=== PATIENT | female | born 1940 | race Two or more races ===

== ENCOUNTER 2024-11-04 19:27 | Observation (INO) ==
[2024-11-04 19:51] LABS: BASOPHILS # (AUTO) 0.1 K/uL (0-0.2); BASOPHILS % (AUTO) 0.6 % (0.0-3.0); EOSINOPHILS % (AUTO) 0.3 % (0.0-7.0); HEMATOCRIT 42.6 % (37.0-47.0); HEMOGLOBIN 12.5 g/dl (12.0-16.0); IMMATURE GRANULOCYTE % (AUTO) 0.3 % (0.0-5.0); LYMPHOCYTES # (AUTO) 1.2 K/uL (0.60-3.4); LYMPHOCYTES % (AUTO) 11.7 (10.0-50.0); MEAN CORPUSCULAR HEMOGLOBIN 29.6 pg (27.0-31.0); MEAN CORPUSCULAR HGB CONC 29.3 (31.8-35.4); MEAN CORPUSCULAR VOLUME 100.9 fl (81.0-99.0); MONOCYTES # (AUTO) 0.8 K/uL (0.4-2.0); MONOCYTES % (AUTO) 7.8 (0-10); NEUTROPHILS # (AUTO) 8.3 K/ul (2.0-6.9); NEUTROPHILS % (AUTO) 79.3 % (42.2-75.2); PLATELET COUNT 255 10^3/uL (140-440); RDW COEFFICIENT OF VARIATION 13.4 % (11.6-14.8); RED BLOOD COUNT 4.22 10^6/ul (4.20-5.40)
[2024-11-04 20:04] LABS: ALANINE AMINOTRANSFERASE 16.5 U/L (0-35); ALBUMIN 4.13 g/dL (3.5-5.0); ALKALINE PHOSPHATASE 93.8 U/L (53-141); ASPARTATE AMINO TRANSFERASE 25.8 U/L (14-36); BILIRUBIN,TOTAL 0.62 mg/dL (0.2-1.3); BLOOD UREA NITROGEN 20.2 mg/dL (7-17); CALCIUM 9.41 mg/dL (8.4-10.2); CARBON DIOXIDE 24.3 mmol/L (22-30.0); CHLORIDE 104.4 mmol/L (98-107); CREATINE KINASE 103.3 U/L (30-135); CREATININE 0.94 mg/dL (0.60-1.30); POTASSIUM 4.43 mmol/L (3.5-5.1); SODIUM 137.7 mmol/L (134.5-145); TOTAL PROTEIN 6.73 g/dL (6.3-8.2)
[2024-11-04 20:16] LABS: TROPONIN I < 0.012 ng/ml (0.0000-0.120)
--- NOTE | 2024-11-04 20:16 | DI ---
EXAM: CHEST FRONTAL VIEW HISTORY: Chest pain, shortness of breath COMPARISON: None IMPRESSION: Cardiomegaly and ectasia of the thoracic aorta. Lungs are clear. There is no consolidation, acute i nfiltrate or pleural fluid. No vascular congestion or pneumothorax. 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 Surgical clips right axilla. - - - - -
--- NOTE | 2024-11-04 20:17 | CT ---
EXAM: CT OF THE PELVIS WITHOUT CONTRAST. HISTORY: Fall. COMPARISON: None. TECHNIQUE: Contiguous axial images obtained through the bony pelvis. Sagittal and coronal reformats reviewed. FINDINGS: There are postoperative changes with a total arthroplasty. The hardware is intact. Ther e are no acute fractures. There is severe joint narrowing with bone on bone articulation of the righ t hip. Large osteophytes are seen on the femoral head. There is severe degenerative changes of the spine. Disc narrowing osteophyte formation. Anterolisthesis of four on L5. Heavy vascular calcific ations. IMPRESSION: 1. No acute fractures. 2. Postoperative changes left hip. 3. 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 Degenerative changes of the spine. All CT scans are performed using dose optimization techniques as appropriate to the performed exam an d include at least one of the following: Automated exposure control, adjustment of the mA and/or kV according t o size, and the use of iterative reconstruction technique.
--- NOTE | 2024-11-04 20:22 | CT ---
EXAM: CT HEAD WITHOUT CONTRAST TECHNIQUE: Noncontrast CT of the head with multiple reformats. HISTORY: Trauma COMPARISON: None FINDINGS: Ventricular size is normal. Atrophy. Scattered variable white matter attenuation which can be seen w ith underlying chronic microvascular ischemic change. Rodriguez-white matter interfaces are preserved with no evidence of acute infarct. No evidence of intracranial hemorrhage. No midline shift or mass eff ect. No ectopia. Mucosal thickening sphenoid sinus. Mastoid air cells are clear. Orbital contents are normal. The calvarium is intact. IMPRESSION: 1. Mild atrophy and white matter attenuation changes compatible with chronic small vessel ischemia 2. Chronic sinusitis. All CT scans are performed using dose optimization techniques as appropriate to the performed exam an d includes at least one of the following: Automated exposure control, adjustment of the mA and/or kV according to size, and the use of iterative reconstruction technique. All CT scans are performed using dose optimization techniques as appropriate to the performed exam an d include at least one of the following: Automated exposure control, adjustment of the mA and/or kV according t o size, and the use of iterative reconstruction technique.
[2024-11-04 21:22] LABS: BILIRUBIN,URINE Negative (NEGATIVE); CLARITY,URINE Clear (CLEAR); COLOR,URINE Yellow (YELLOW); GLUCOSE, URINE (UA) Negative (NEGATIVE); KETONES,URINE Negative (NEGATIVE); LEUKOCYTE ESTERASE ,URINE 1+ (NEGATIVE); NITRITE,URINE Positive (NEGATIVE); PH,URINE 5.5 (5-9); PROTEIN,URINE Negative (NEGATIVE); URINE, BLOOD Negative (NEGATIVE); UROBILINOGEN,URINE 0.2 (0.2)
[2024-11-04 21:29] LABS: BACTERIA,URINE 2+ (NOT PRESENT); RENAL EPITHELIAL CELLS,URINE 0-2 (NOT PRESENT); URINE WBC, MICROSCOPIC 20-30 (0-2)
[2024-11-04] MEDS ORDERED: ROCEPHIN 1 GM VIAL IVP ONE (21:55)
[2024-11-04] MEDS ORDERED: ROCEPHIN 1 GM VIAL IM ONE (22:09)
[2024-11-04] MEDS ORDERED: LIDOCAINE 1% 5 ML SDV IM ONE (22:09)
--- NOTE | 2024-11-04 22:15 | ED.PDOC ---
General ED Provider: Dr. MARCELLUS WEINBERG DO Chief Complaint: Fall Stated Complaint: 84-year-old female presents to the ER from home via EMS. She was found after she reportedly had fallen to the ground and had trouble getting up. She lives by herself. EMS concerned that she had significant amount of hoarding type activity around her. Otherwise, patient states that she did not pass out, had no prodromal symptoms. currently has not complaints. History reviewed in chart. Time Seen by Provider: 11/04/24 19:29 Information Source: Patient Primary Care Provider: SKY QUIROZ MD Nursing and Triage Documentation Reviewed and Agree: Yes What is Opioid Naive?: *Opioid Naive implies the patient is not already taking opioids or not chronically receiving opioids on a daily basis. *PRN dosing is not "usually" associated with tolerance. *Patients are at higher risk of over-sedation and aspiration. What is Opioid Tolerant?: *Opioid Tolerance implies less than the expected response to an opioid. *Acquired tolerance is defined by the patient taking 60mg of oral morphine daily (or equianalgesic dose of another opioid) for 1 week or more. *Often associated with chronic pain. *May take more than usual dose to achieve desired pain control. Review of Systems Review Of Systems Constitutional: Reports No symptoms All Other Systems: Reviewed and Negative [facility] Medical History CAD (coronary artery disease) I25.10 - Atherosclerotic heart disease of [place] coronary artery without angina pectoris (ICD-10) DVT (deep venous thrombosis) I82.409 - Acute embolism and thrombosis of unspecified deep veins of unspecified lower extremity (ICD-10) RLS (restless legs syndrome) G25.81 - Restless legs syndrome (ICD-10) Anemia, unspecified D64.9 - Anemia, unspecified (ICD-10) Vitamin B12 deficiency E53.8 - Deficiency of other specified B group vitamins (ICD-10) Nodule of right lung R91.1 - Solitary pulmonary nodule (ICD-10) Breast CA C50.919 - Malignant neoplasm of unspecified site of unspecified female breast (ICD-10) Asthma J45.909 - Unspecified asthma, uncomplicated (ICD-10) Afib I48.91 - Unspecified atrial fibrillation (ICD-10) Depression F32.A - Depression, unspecified (ICD-10) Family History FATHER , Lung CA Lung cancer, Onset Age: 87 Mother Heart disease Social History Smoking and tobacco status: Never smoker Passive smoking exposure: No Alcohol intake: current Alcohol intake frequency: a few times a month Alcohol type: beer and wine Counseling provided: provider counseling Substance use type: does not use [place]/voodoo: BAPTISM Adopted: No Household members: none Housing: other Marital status: W / Lives independently: Yes (mobile home) Number of children: 3 Number of grandchildren: 11 Highest education level completed: Master's degree Financial difficulty paying for basics: not very hard service: No halfway: No Current occupational status: retired Current occupation: Retired Pets and animals: Yes (Cats) Do you think of yourself as: straight/heterosexual Current gender identity: female Seatbelt use: always Drives intoxicated or rides with 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 Water heater temperature set < 120 degrees: Yes Working smoke detector in home: Yes Fire extinguisher in home: No (encouraged to purchase) Carbon monoxide detector in home: No Surgical History History of cataract removal with insertion of prosthetic lens bilateral Aug 2021 Z98.49 - Cataract extraction status, unspecified eye (ICD-10) Z96.1 - Presence of intraocular lens (ICD-10) H/O: hysterectomy 1992 Z90.710 - Acquired absence of both cervix and uterus (ICD-10) History of right mastectomy age 46 Z90.11 - Acquired absence of right breast and nipple (ICD-10) Female Reproductive History Menstrual Hx Hysterectomy: Yes Physical Exam Physical Exam Appearance: Reports Well-appearing, No pain distress and Well-nourished ENT: Reports Oropharynx normal Respiratory: Reports Airway patent, Breath sounds clear, Breath sounds equal and Respirations nonlabored Cardiovascular: Reports RRR and Pulses normal GI/: Reports Soft and Nontender Musculoskeletal: Reports Normal strength and ROM intact Skin: Reports Warm, Dry and Normal color Neurological: Reports Sensation intact, Motor intact, Alert and Oriented Psychiatric: Reports Affect appropriate and Mood appropriate Interpretation Radiology Interpretation Radiology Interpretation By: Radiologist Radiology Results: No acute changes Exam Interpreted: CXR and CT Scan Re-Evaluation Re-Evaluation Additional Comments: 84-year-old female presents to the ER after a fall. Unknown downtime. Concern for rhabdo initially. She is afebrile nontoxic doubt sepsis. No acute complaints. Nonfocal neuroexam. Doubt stroke or other neurologic event. Nonetheless, given her age and comorbidities, warrants further workup. Subsequently found to have a UTI. Vital signs otherwise stable. Well-appearing and pleasant. Discussed with the hospital service and appreciate their help in caring for this patient. I am concerned that if she had fallen and not been able to get up, and UTIs the only diagnosis I found primarily today, that it is reasonable to think that she would have the risk of falling and not being able to get up again that could result in further damage such as rhabdomyolysis or other endorgan damage with high mortality rate. Course Course 11/04/24 19:46 11/04/24 19:46 Orders, Labs, Meds: Lab Review 11/04/24 11/04/24 19:46 21:16 WBC 10.50 H RBC 4.22 Hgb 12.5 Hct 42.6 MCV 100.9 H MCH 29.6 MCHC 29.3 L RDW Coeff of Zaira 13.4 Plt Count 255 Immature Gran % (Auto) 0.3 Neut % (Auto) 79.3 H Lymph % (Auto) 11.7 [place] % (Auto) 7.8 Eos % (Auto) 0.3 Baso % (Auto) 0.6 Neut # (Auto) 8.3 H Lymph # (Auto) 1.2 [place] # (Auto) 0.8 Eos # (Auto) 0.0 Baso # (Auto) 0.1 Immature Gran # (Auto) 0.0 Sodium 137.7 Potassium 4.43 Chloride 104.4 Carbon Dioxide 24.3 Anion Gap 13.43 BUN 20.2 H Creatinine 0.94 Estimated GFR (MDRD) 57.00 BUN/Creatinine Ratio 21.48 Glucose 112.0 H Calcium 9.41 Total Bilirubin 0.62 AST 25.8 ALT 16.5 Alkaline Phosphatase 93.8 Total Creatine Kinase 103.3 Troponin I < 0.012 Total Protein 6.73 Albumin 4.13 Globulin 2.60 Albumin/Globulin Ratio 1.58 Urine Color Yellow Urine Clarity Clear Urine pH 5.5 Ur Specific [place] 1.025 Urine Protein Negative Urine Glucose (UA) Negative Urine Ketones Negative Urine Blood Negative Urine Nitrite Positive H Urine Bilirubin Negative Urine Urobilinogen 0.2 Ur Leukocyte Esterase 1+ H Urine Microscopic RBC 2-5 Urine Microscopic WBC 20-30 Ur Squamous Epith Cells 2-5 Ur Renal Epithelial Cell 0-2 Urine Bacteria 2+ Hyaline Casts 2-5 Orders Category Date Time Status CBC W/ AUTO DIFF Stat LAB 11/04/24 19:46 Completed CMP [COMPREHENSIVE METABOLIC PANEL] Stat LAB 11/04/24 19:46 Completed CREATINE KINASE Stat LAB 11/04/24 19:46 Completed TROPONIN I Stat LAB 11/04/24 19:46 Completed URINALYSIS C & S IF INDICATED Stat LAB 11/04/24 21:16 Completed URINE CULTURE Stat LAB 11/04/24 21:16 Received Ceftriaxone 1 gm Vial [Rocephin 1 gm Vial] Meds 11/04/24 22:09 Discontinued 1 gm IM ONCE ONE Lidocaine HCl/Pf [Lidocaine 1% 5 ml Sdv] Meds 11/04/24 22:09 Discontinued 2.1 ml IM ONCE ONE CHEST, 1V AP ONLY Stat RADS 11/04/24 19:[address] HEAD W/O CONTRAST Stat RADS 11/04/24 19:[address] PELVIS W/O CONTRAST Stat RADS 11/04/24 19:35 Completed Medications Discontinued Medications Generic Name Dose Route Start Last Admin Trade Name Osvaldoq PRN Reason Stop Dose Admin Ceftriaxone Sodium 1 gm 11/04/24 22:09 Ceftriaxone 1 Gm Vial IM 11/04/24 22:10 ONCE ONE Lidocaine HCl 2.1 ml 11/04/24 22:09 Lidocaine 1% 5 Ml Sdv IM 11/04/24 22:10 ONCE ONE Vital Signs: Temp Pulse Resp BP Pulse Ox 11/04/24 19:33 97.8 F 85 16 122/58 L 98 Discharge Plan Discharge Patient Disposition: PLACED OBSERVATION Discharge Problem: Acute UTI, Fall, Weakness Did you review [place] for ALL controlled substances?: Not Applicable ED Provider: MARCELLUS WEINBERG Condition: Stable
[2024-11-04] MEDS ORDERED: DUONEB NEB PRN (22:17)
[2024-11-04 22:59] LABS: SARS COV-2 RNA RAPID NAAT NEGATIVE (NEGATIVE)
[2024-11-04] MEDS: ROCEPHIN 1 GM VIAL IVP ONE (23:05)
[2024-11-05 01:11] VITALS: BMI 31.1
[2024-11-05] MEDS: TYLENOL PO PRN (03:22)
[2024-11-05] MEDS: ZOFRAN ODT PO PRN (03:45)
[2024-11-05] MEDS ORDERED: ZOFRAN SDV IVP PRN (08:33)
[2024-11-05] MEDS ORDERED: NON-FORMULARY MEDICATION (Albuterol Sulfate 0.63 mg/3 mL solution for nebulization) IH PRN (08:35)
[2024-11-05] MEDS ORDERED: ALBUTEROL 0.083% NEB NEB PRN (08:51)
[2024-11-05] MEDS ORDERED: XARELTO PO SCH (09:00)
[2024-11-05] MEDS ORDERED: NON-FORMULARY MEDICATION (Budesonide-Glycopyr-Formoterol [Breztri Aerosphere] 160-9-4.8 mc IH SCH (09:00)
[2024-11-05 09:12] LABS: BASOPHILS % (AUTO) 0.7 % (0.0-3.0); EOSINOPHILS # (AUTO) 0.1 K/ul (0.0-0.7); EOSINOPHILS % (AUTO) 1.2 % (0.0-7.0); HEMATOCRIT 35.4 % (37.0-47.0); HEMOGLOBIN 10.8 g/dl (12.0-16.0); IMMATURE GRANULOCYTE % (AUTO) 0.2 % (0.0-5.0); LYMPHOCYTES % (AUTO) 17.2 (10.0-50.0); MEAN CORPUSCULAR HEMOGLOBIN 30.4 pg (27.0-31.0); MEAN CORPUSCULAR HGB CONC 30.5 (31.8-35.4); MEAN CORPUSCULAR VOLUME 99.7 fl (81.0-99.0); MONOCYTES # (AUTO) 0.6 K/uL (0.4-2.0); MONOCYTES % (AUTO) 10.9 (0-10); NEUTROPHILS % (AUTO) 69.8 % (42.2-75.2); PLATELET COUNT 217 10^3/uL (140-440); RDW COEFFICIENT OF VARIATION 13.4 % (11.6-14.8); RED BLOOD COUNT 3.55 10^6/ul (4.20-5.40); WHITE BLOOD COUNT 5.71 K/ul (4.6-10.2)
[2024-11-05 09:23] LABS: ALANINE AMINOTRANSFERASE 15.5 U/L (0-35); ALBUMIN 3.27 g/dL (3.5-5.0); ALKALINE PHOSPHATASE 78.5 U/L (53-141); ASPARTATE AMINO TRANSFERASE 27.6 U/L (14-36); BILIRUBIN,TOTAL 0.38 mg/dL (0.2-1.3); BLOOD UREA NITROGEN 21.3 mg/dL (7-17); CALCIUM 8.69 mg/dL (8.4-10.2); CARBON DIOXIDE 25.4 mmol/L (22-30.0); CHLORIDE 105.7 mmol/L (98-107); CREATININE 1.06 mg/dL (0.60-1.30); GLUCOSE 100.5 mg/dL (74-106); POTASSIUM 3.99 mmol/L (3.5-5.1); SODIUM 137.5 mmol/L (134.5-145); TOTAL PROTEIN 5.79 g/dL (6.3-8.2)
[2024-11-05] MEDS: CYMBALTA PO SCH ×2 (09:25→09:26)
[2024-11-05] MEDS: ZESTRIL PO SCH (09:26)
[2024-11-05] MEDS: WELLBUTRIN XL PO SCH (09:27)
[2024-11-05] MEDS: TYLENOL PO SCH (09:27)
--- NOTE | 2024-11-05 09:31 | PCM ---
Date of Service Date Seen by Provider: 11/05/24 Time Seen by Provider: 08:40 Admit Day/Time Admission Date: 11/04/24 Admission Time: 22:16 Reason for Admission Chief Complaint: UTI, FALL, WEAKNESS Hospital Provider Hospital Provider: [facility] ENCIN[facility]ician Primary Care Physician: SKY QUIROZ MD History of Present Illness History of Present Illness: Patient is an 84 year old female from home with pmhx of COPD, hypertension, paroxysmal a fib, and depression who presents for a fall. Patient states she didn't have her shoe on well and tripped around 0700 on 11/04. She was unable to get to the phone. Ultimately finally "yuriy walked" to the phone and was able to reach someone about 1800. She denies hitting her head or LOC. In the ER she had a ct head, ct pelvis, and cxr negative. CPK normal. UA suspect for UTI. She does admit to some dysuria. She lives at home alone. She is a DNR. She states today her hips are very sore from being in the floor so long. She has concerns about going home. Case Discussed With Case Discussed With: Patient's case was discussed with the ER Physicians, Dr. Meza. [facility] Medical History CAD (coronary artery disease) I25.10 - Atherosclerotic heart disease of [place] coronary artery without angina pectoris (ICD-10) DVT (deep venous thrombosis) I82.409 - Acute embolism and thrombosis of unspecified deep veins of unsp ecified lower extremity (ICD-10) RLS (restless legs syndrome) G25.81 - Restless legs syndrome (ICD-10) Anemia, unspecified D64.9 - Anemia, unspecified (ICD-10) Vitamin B12 deficiency E53.8 - Deficiency of other specified B group vitamins (ICD-10) Nodule of right lung R91.1 - Solitary pulmonary nodule (ICD-10) Breast CA C50.919 - Malignant neoplasm of unspecified site of unspecified female breast (ICD-10) Asthma J45.909 - Unspecified asthma, uncomplicated (ICD-10) Afib I48.91 - Unspecified atrial fibrillation (ICD-10) Depression F32.A - Depression, unspecified (ICD-10) Surgical History History of cataract removal with insertion of prosthetic lens bilateral Aug 2021 Z98.49 - Cataract extraction status, unspecified eye (ICD-10) Z96.1 - Presence of intraocular lens (ICD-10) H/O: hysterectomy 1992 Z90.710 - Acquired absence of both cervix and uterus (ICD-10) History of right mastectomy age 46 Z90.11 - Acquired absence of right breast and nipple (ICD-10) Family History FATHER , Lung CA Lung cancer, Onset Age: 87 Mother Heart disease Social History Smoking and tobacco status: Never smoker Passive smoking exposure: No Alcohol intake: current Alcohol intake frequency: a few times a month Alcohol type: beer and wine Counseling provided: provider counseling Substance use type: does not use [place]/yazidism: MORAVIAN Adopted: No Household members: none Housing: other Marital status: W / Lives independently: Yes (mobile home) Number of children: 3 Number of grandchildren: 11 Highest education level completed: Master's degree Financial difficulty paying for basics: not very hard service: No FDC: No Current occupational status: retired Current occupation: Retired Pets and animals: Yes (Cats) Do you think of yourself as: straight/heterosexual Current gender identity: female Seatbelt use: always Drives intoxicated or rides with intoxicated grain combine driver: No Water heater temperature set < 120 degrees: Yes Working smoke detector in home: Yes Fire extinguisher in home: No (encouraged to purchase) Carbon monoxide detector in home: No Allergies Allergies Allergy/AdvReac Type Severity Reaction Status Date / Time Sulfa (Sulfonamide AdvReac Unknown Unknown Verified 11/04/24 19:45 Antibiotics) Current Medications Home Medications albuterol sulfate 0.63 mg/3 mL solution for nebulization 0.63 mg (3 mL) inhalation Q6H PRN shortness of breath or wheezing #90 mL 06/28/24 [Rx Confirmed 11/05/24 Last Taken Unknown] albuterol sulfate 90 mcg/actuation aerosol inhaler 2 inh inhalation Q6H PRN shortness of breath or wheezing 90 days #8.5 grams 10/20/24 [Rx Confirmed 11/05/24 Last Taken 11/04/24] amlodipine 5 mg tablet 5 mg PO QDAY 90 days #90 tabs 10/20/24 [Rx Confirmed 1 01/06/24 Last Taken 11/03/24] budesonide 160 mcg-glycopyr 9 mcg-formot 4.8 mcg/actuation HFA inhaler (Breztri Aerosphere) 2 inh inhalation BID 10/20/24 [History Confirmed 11/05/24 Last Taken 11/04/24] bumetanide 1 mg tablet 1 mg PO QDAY PRN weight gain/ swelling #90 tabs 10/20/24 [Rx Confirmed 11/05/24 Last Taken 11/04/24] bupropion HCl 150 mg tablet,12 hr sustained-release 150 mg PO QAM 90 days #90 ea 10/20/24 [Rx Confirmed 11/05/24 Last Taken 11/03/24] bupropion HCl 300 mg 24 hr tablet, extended release 300 mg PO QAM 90 days #90 tabs 10/20/24 [Rx Confirmed 11/05/24 Last Taken 11/03/24] duloxetine 30 mg capsule,delayed release 30 mg PO QDAY #30 caps 10/20/24 [Rx Confirmed 11/05/24 Last Taken 11/04/24] duloxetine 60 mg capsule,delayed release 60 mg PO QDAY #90 caps 10/20/24 [Rx Confirmed 11/05/24 Last Taken 11/03/24] lisinopril 40 mg tablet 40 mg PO QDAY 90 days #90 tabs 10/20/24 [Rx Confirmed 11/05/24 Last Taken 11/03/24] rivaroxaban 20 mg tablet (Xarelto) 20 mg PO QDAY #90 tabs 10/20/24 [Rx Confirmed 11/05/24 Last Taken 11/03/24] ergocalciferol (vitamin D2) 1,250 mcg (50,000 unit) capsule See Rx Instructions .Route .COMPLEX #12 caps 10/24/24 [Rx Confirmed 11/05/24 Last Taken 10/30/24] mecobalamin (vitamin B12) 1,000 mcg disintegrating tablet,sublingual 1,000 mcg sublingual QDAY 30 days #30 tabs 10/30/24 [Rx Confirmed 11/04/24 Last Taken Unknown] Home Acetaminophen (Acetaminophen 325 Mg Tablet) 650 mg PO TID [facility] Last Admin: 11/05/24 09:27 Dose: 650 mg Albuterol Sulfate (Albuterol Sulfate 8 Gm Inhaler) 2 puff IH Q6H PRN PRN Reason: sob Albuterol Sulfate (Albuterol Sulfate 0.083% Vial.Neb) 2.5 mg NEB Q6H PRN PRN Reason: sob Albuterol/Ipratropium (Ipratropium/Albuterol Vial.Neb) 3 ml NEB RTQ2H PRN PRN Reason: Wheezing Amlodipine Besylate (Amlodipine Besylate 5 Mg Tablet) 5 mg PO BEDTIME [facility] Budesonide/Formoterol Fumarate (Budesonide/Formoterol Fumarate 160/4.5 Mcg Inhaler) 2 puff IH BID [facility] Last Admin: 11/05/24 09:37 Dose: 2 puff Bupropion HCl (Bupropion Hcl 150 Mg Tab.Er.24h) 300 mg PO QAM [facility] Last Admin: 11/05/24 09:27 Dose: 300 mg Duloxetine HCl (Duloxetine Hcl 30 Mg Capsule.Dr) 30 mg PO DAILY [facility] Last Admin: 11/05/24 09:25 Dose: 30 mg Duloxetine HCl (Duloxetine Hcl 30 Mg Capsule.Dr) 60 mg PO DAILY [facility] Last Admin: 11/05/24 09:26 Dose: 60 mg CEFTRIAXONE/D5W 1 GM PREMIX (Rocephin 1 Gm/50 Ml D5w) 1 gm in 50 mls @ 100 mls/hr IV BEDTIME [facility] Stop: 11/08/24 20:59 Lisinopril (Lisinopril 40 Mg Tablet) 40 mg PO DAILY [facility] Last Admin: 11/05/24 09:26 Dose: 40 mg Non-Formulary Medication (Bupropion Hcl) 150 mg PO QAM [facility] Last Admin: 11/05/24 10:04 Dose: Not Given Ondansetron HCl (Ondansetron Hcl/Pf 4 Mg/2 Ml Sdv) 4 mg IVP Q6H PRN PRN Reason: Nausea / Vomiting Rivaroxaban (Rivaroxaban 10 Mg Tablet) 15 mg PO 1730 [facility] Sodium Chloride (0.9% Sodium Chloride 10 Ml Disp.Syrin) 1 syr IVF Q8HR [facility] Last Admin: 11/05/24 13:17 Dose: 1 syr Tiotropium [place] (Tiotropium [place] 18 Mcg Cap.W.Dev) 1 cap IH DAILY [facility] Last Admin: 11/05/24 09:37 Dose: 1 cap Discontinued Medications Acetaminophen (Acetaminophen 500 Mg Tablet) 500 mg PO Q4H PRN PRN Reason: FEVER/PAIN Last Admin: 11/05/24 03:22 Dose: 500 mg Amlodipine Besylate (Amlodipine Besylate 5 Mg Tablet) 5 mg PO DAILY [facility] Last Admin: 11/05/24 09:53 Dose: Not Given Ceftriaxone Sodium (Ceftriaxone 1 Gm Vial) 1 gm IVP ONCE ONE Stop: 11/04/24 22:18 Last Admin: 11/04/24 23:05 Dose: 1 gm Non-Formulary Medication (Hzidvsswqb-Prfpfwea-Qmylwtrmev [Breztri Aerosphere]) 2 inh IH BID [facility] Ondansetron HCl (Ondansetron Hcl 4 Mg Tab.Rapdis) 4 mg PO Q4H PRN PRN Reason: Nausea / Vomiting Last Admin: 11/05/24 03:45 Dose: 4 mg Opioid Naive vs. Tolerant Does Patient Take Opioids?: No Is Patient Opioid Naive?: Yes What is Opioid Naive?: *Opioid Naive implies the patient is not already taking opioids or not chronically receiving opioids on a daily basis. *PRN dosing is not "usually" associated with tolerance. *Patients are at higher risk of over-sedation and aspiration. Is Patient Opioid Tolerant?: No What is Opioid Tolerant?: *Opioid Tolerance implies less than the expected response to an opioid. *Acquired tolerance is defined by the patient taking 60mg of oral morphine daily (or equianalgesic dose of another opioid) for 1 week or more. *Often associated with chronic pain. *May take more than usual dose to achieve desired pain control. Review of Systems Constitutional: Reports Fatigue and Weakness; Denies Fever Head: Reports Normocephalic and Atraumatic Cardiovascular: Denies Chest pain, Chest Pressure or Edema Respiratory: Denies Cough or Shortness of air Gastrointestinal: Denies Nausea, Vomiting, Diarrhea, Abdominal pain or Melena Genitourinary: Reports Dysuria; Denies Frequency Musculoskeletal: Reports Other (+hip pain lev ) Neurological: Reports Weakness and Problems with walking Psychiatric: Reports Depression and Anxiety Physical examination Most Recent Vital Signs: Most Recent Vital Signs Temperature 97.4 F L 11/05/24 05:06 Temperature Source Temporal Artery Scan 11/05/24 05:06 Temperature Source Infrared 11/04/24 19:33 Pulse Rate 79 11/05/24 05:06 Respiratory Rate 16 11/05/24 05:06 Blood Pressure 123/59 L 11/05/24 05:06 Blood Pressure Mean 80 11/05/24 05:06 Blood Pressure Left Arm 154/82 11/04/24 23:46 Blood Pressure Location Right Arm 11/05/24 05:06 Blood Pressure Position Supine 11/05/24 05:06 O2 Sat by Pulse Oximetry 92 L 11/05/24 05:06 Oxygen Delivery Method Room Air 11/05/24 08:00 Height 5 ft 3 in 11/04/24 23:46 Weight 79.9 kg 11/04/24 23:46 Appearance: Positive No Apparent Distress and Alert and Oriented x3 Skin: Positive [place], Warm and Good Turgor; Negative Rashes HEENT: Positive Normocephalic and Atraumatic Neck: Positive Supple and Midline Trachea Chest/Lungs: Positive Clear to Auscultation Bilaterally; Negative Rales, Rhonci or Wheezes Heart: Positive RRR GI/: Positive Soft, Nontender, Bowel Sounds Normal and No Distention Neurological: Positive Cranial Nerves Intact, Alert, Oriented and Other (+generalized weakness ) Labs This Visit Labs This Visit: Labs This Visit 11/04/24 11/04/24 11/04/24 19:46 21:16 22:40 WBC 10.50 H RBC 4.22 Hgb 12.5 Hct 42.6 MCV 100.9 H MCH 29.6 MCHC 29.3 L RDW Coeff of Zaira 13.4 Plt Count 255 Immature Gran % (Auto) 0.3 Neut % (Auto) 79.3 H Lymph % (Auto) 11.7 [place] % (Auto) 7.8 Eos % (Auto) 0.3 Baso % (Auto) 0.6 Neut # (Auto) 8.3 H Lymph # (Auto) 1.2 [place] # (Auto) 0.8 Eos # (Auto) 0.0 Baso # (Auto) 0.1 Immature Gran # (Auto) 0.0 Sodium 137.7 Potassium 4.43 Chloride 104.4 Carbon Dioxide 24.3 Anion Gap 13.43 BUN 20.2 H Creatinine 0.94 Estimated GFR (MDRD) 57.00 BUN/Creatinine Ratio 21.48 Glucose 112.0 H Calcium 9.41 Total Bilirubin 0.62 AST 25.8 ALT 16.5 Alkaline Phosphatase 93.8 Total Creatine Kinase 103.3 Troponin I < 0.012 Total Protein 6.73 Albumin 4.13 Globulin 2.60 Albumin/Globulin Ratio 1.58 Urine Color Yellow Urine Clarity Clear Urine pH 5.5 Ur Specific [place] 1.025 Urine Protein Negative Urine Glucose (UA) Negative Urine Ketones Negative Urine Blood Negative Urine Nitrite Positive H Urine Bilirubin Negative Urine Urobilinogen 0.2 Ur Leukocyte Esterase 1+ H Urine Microscopic RBC 2-5 Urine Microscopic WBC 20-30 Ur Squamous Epith Cells 2-5 Ur Renal Epithelial Cell 0-2 Urine Bacteria 2+ Hyaline Casts 2-5 SARS CoV-2 RNA Rapid ROYER Negative 11/05/24 09:10 WBC 5.71 RBC 3.55 L Hgb 10.8 L Hct 35.4 L D MCV 99.7 H MCH 30.4 MCHC 30.5 L RDW Coeff of Zaira 13.4 Plt Count 217 Immature Gran % (Auto) 0.2 Neut % (Auto) 69.8 Lymph % (Auto) 17.2 [place] % (Auto) 10.9 H Eos % (Auto) 1.2 Baso % (Auto) 0.7 Neut # (Auto) 4.0 Lymph # (Auto) 1.0 [place] # (Auto) 0.6 Eos # (Auto) 0.1 Baso # (Auto) 0.0 Immature Gran # (Auto) 0.0 Sodium Potassium Chloride Carbon Dioxide Anion Gap BUN Creatinine Estimated GFR (MDRD) BUN/Creatinine Ratio Glucose Calcium Total Bilirubin AST ALT Alkaline Phosphatase Total Creatine Kinase Troponin I Total Protein Albumin Globulin Albumin/Globulin Ratio Urine Color Urine Clarity Urine pH Ur Specific [place] Urine Protein Urine Glucose (UA) Urine Ketones Urine Blood Urine Nitrite Urine Bilirubin Urine Urobilinogen Ur Leukocyte Esterase Urine Microscopic RBC Urine Microscopic WBC Ur Squamous Epith Cells Ur Renal Epithelial Cell Urine Bacteria Hyaline Casts SARS CoV-2 RNA Rapid ROYER Microbiology This Visit 11/04/24 21:16 Urine,Random Urine Culture - Preliminary Imaging Imaging: EXAM: CT HEAD WITHOUT CONTRAST TECHNIQUE: Noncontrast CT of the head with multiple reformats. HISTORY: Trauma COMPARISON: None FINDINGS: Ventricular size is normal. Atrophy. Scattered variable white matter attenuation which can be seen with underlying chronic microvascular ischemic change. Rodriguez-white matter interfaces are preserved with no evidence of acute infarct. No evidence of intracranial hemorrhage. No midline shift or mass effect. No ectopia. Mucosal thickening sphenoid sinus. Mastoid air cells are clear. Orbital contents are normal. The calvarium is intact. IMPRESSION: 1. Mild atrophy and white matter attenuation changes compatible with chronic small vessel ischemia 2. Chronic sinusitis. EXAM: CT OF THE PELVIS WITHOUT CONTRAST. HISTORY: Fall. COMPARISON: None. TECHNIQUE: Contiguous axial images obtained through the bony pelvis. Sagittal and coronal reformats reviewed. FINDINGS: There are postoperative changes with a total arthroplasty. The hardware is intact. There are no acute fractures. There is severe joint narrowing with bone on bone articulation of the right hip. Large osteophytes are seen on the femoral head. There is severe degenerative changes of the spine. Disc narrowing osteophyte formation. Anterolisthesis of four on L5. Heavy vascular calcifications. IMPRESSION: 1. No acute fractures. 2. Postoperative changes left hip. 3. 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 Degenerative changes of the spine. EXAM: CHEST FRONTAL VIEW HISTORY: Chest pain, shortness of breath COMPARISON: None IMPRESSION: Cardiomegaly and ectasia of the thoracic aorta. Lungs are clear. There is no consolidation, acute infiltrate or pleural fluid. No vascular congestion or pneumothorax. Bones reveal arthritis of the shoulders. Surgical clips right axilla. Review Statement Review Statement: I have independently reviewed and interpreted the labs/EKGs/imaging that were ordered by the ER provider. I have reviewed all outside records that are available currently in our EMR including imaging/notes/labs from previous visits. Plan Plan: 1. UTI - Urine culture pending. Rocephin daily. 2. Fall for almost 12 hrs - PTOT, repeat CPK today. 3. Hypertension - Cont home meds 4. Depression - Cont home meds 5. PAF - Cont home meds 6. COPD, not in exacerbation - Cont home meds DVT Prophylaxis: Xarelto Time Spent: Greater than 80 minutes spent with patient, 50% of the time spent with this patient was devoted to counseling and coordination of care. [facility]in minutes spent discussing advance care planning. DNR Admit to: Obs Discussed Plan of Care with Dr. Jarred Alcocer. Dispo: Home w/ home health vs swingbed if she's a candidate, currently no safe discharge plan arranged. Medications Medication Orders: Medications Ordered Category Date Time Status 0.9 % Sodium Chloride [Saline Flush] Meds 11/05/24 05:00 Active 1 syr IVF Q8HR Acetaminophen [Tylenol] Meds 11/05/24 09:00 Active 650 mg PO TID Albuterol Sulfate 0.083% Neb [Albuterol 0.083% Neb] Meds 11/05/24 08:51 Active 2.5 mg NEB Q6H PRN Albuterol Sulfate [Ventolin Hfa] Meds 11/05/24 08:35 Active 2 puff IH Q6H PRN Amlodipine Besylate [Norvasc] Meds 11/05/24 09:00 Active 5 mg PO DAILY Budesonide/Formoterol Fumarate [Symbicort 160-4.5 Mcg Meds 11/05/24 09:00 Active Inhaler] 2 puff IH BID Bupropion HCl [Wellbutrin Xl] Meds 11/05/24 09:00 Active 300 mg PO QAM Ceftriaxone/D5w 1 gm Premix [Rocephin 1 gm/50 ml D5w] Meds 11/05/24 21:00 Active 1 gm in 50 ml IV BEDTIME Duloxetine HCl [Cymbalta] Meds 11/05/24 09:00 Active 30 mg PO DAILY Duloxetine HCl [Cymbalta] Meds 11/05/24 09:00 Active 60 mg PO DAILY Ipratropium/Albuterol Neb [Duoneb] Meds 11/04/24 22:17 Active 3 ml NEB RTQ2H PRN Lisinopril [Zestril] Meds 11/05/24 09:00 Active 40 mg PO DAILY Ondansetron HCl/Pf [Zofran Sdv] Meds 11/05/24 08:33 Active 4 mg IVP Q6H PRN Rivaroxaban [Xarelto] Meds 11/05/24 17:30 Active 15 mg PO 1730 Tiotropium [place] [Spiriva] Meds 11/05/24 09:00 Active 1 cap IH DAILY bupropion HCl Meds 11/05/24 09:00 Active 150 mg PO QAM
[2024-11-05] MEDS: SPIRIVA IH SCH (09:37)
[2024-11-05] MEDS: SYMBICORT 160-4.5 MCG INHALER IH SCH (09:37)
[2024-11-05 09:53] LABS: CREATINE KINASE MB 3.61 ng/ml (0.0-2.38)
[2024-11-05] MEDS: NORVASC PO SCH ×2 (09:53→20:12)
[2024-11-05] MEDS: BUPROPION HCL 150 MG PO SCH (10:04)
[2024-11-05] MEDS: XARELTO PO SCH (16:57)
[2024-11-05] MEDS: ROCEPHIN 1 GM/50 ML D5W 1 GM/50 ML BAG IV SCH (20:12)
[2024-11-06] MEDS: VENTOLIN HFA IH PRN
[2024-11-06 05:20] VITALS: RESP 16
[2024-11-06 05:24] LABS: EOSINOPHILS # (AUTO) 0.1 K/ul (0.0-0.7); EOSINOPHILS % (AUTO) 3.2 % (0.0-7.0); HEMATOCRIT 33.8 % (37.0-47.0); IMMATURE GRANULOCYTE % (AUTO) 0.5 % (0.0-5.0); LYMPHOCYTES # (AUTO) 1.1 K/uL (0.60-3.4); LYMPHOCYTES % (AUTO) 26.2 (10.0-50.0); MEAN CORPUSCULAR HGB CONC 29.6 (31.8-35.4); MEAN CORPUSCULAR VOLUME 101.5 fl (81.0-99.0); MONOCYTES # (AUTO) 0.5 K/uL (0.4-2.0); MONOCYTES % (AUTO) 12.3 (0-10); NEUTROPHILS # (AUTO) 2.3 K/ul (2.0-6.9); NEUTROPHILS % (AUTO) 56.8 % (42.2-75.2); PLATELET COUNT 193 10^3/uL (140-440); RDW COEFFICIENT OF VARIATION 13.5 % (11.6-14.8); RED BLOOD COUNT 3.33 10^6/ul (4.20-5.40); WHITE BLOOD COUNT 4.08 K/ul (4.6-10.2)
[2024-11-06 05:37] LABS: ALANINE AMINOTRANSFERASE 15.5 U/L (0-35); ALBUMIN 3.16 g/dL (3.5-5.0); ALKALINE PHOSPHATASE 77.5 U/L (53-141); ASPARTATE AMINO TRANSFERASE 26.7 U/L (14-36); BILIRUBIN,TOTAL 0.18 mg/dL (0.2-1.3); BLOOD UREA NITROGEN 22.9 mg/dL (7-17); CALCIUM 8.58 mg/dL (8.4-10.2); CARBON DIOXIDE 27.1 mmol/L (22-30.0); CHLORIDE 105.5 mmol/L (98-107); CREATININE 1.06 mg/dL (0.60-1.30); POTASSIUM 4.31 mmol/L (3.5-5.1); SODIUM 137.4 mmol/L (134.5-145); TOTAL PROTEIN 5.63 g/dL (6.3-8.2)
[2024-11-06 10:19] VITALS: BP 112/65; PULSE 87; TEMP 98.3
--- NOTE | 2024-11-06 11:08 | DCSUM ---
Admission Date Admission Date: 11/04/24 Discharge Date Discharge Date: 11/06/24 Admission Diagnosis Admission Diagnosis: 1. UTI 2. Fall for almost 12 hrs Discharge Diagnosis Discharge Diagnosis: 1. UTI - Improving 2. Fall for almost 12 hrs 3. Hypertension - Chronic, stable 4. Depression - Chronic, stable 5. PAF - Chronic, stable 6. COPD, not in exacerbation Hospital Provider Hospital Provider: TESSY KEYS, [facility] Primary Care Physician Primary Care Physician: SKY QUIROZ MD Summary of History and Physical Summary of History and Physical: Patient is an 84 year old female from home with pmhx of COPD, hypertension, paroxysmal a fib, and depression who presents for a fall. Patient states she didn't have her shoe on well and tripped around 0700 on 11/04. She was unable to get to the phone. Ultimately finally "yuriy walked" to the phone and was able to reach someone about 1800. She denies hitting her head or LOC. In the ER she had a ct head, ct pelvis, and cxr negative. CPK normal. UA suspect for UTI. She does admit to some dysuria. She lives at home alone. She is a DNR. She states today her hips are very sore from being in the floor so long. She has concerns about going home. Hospital Course Subjective: During stay, patient was treated for UTI with rocephin 1G Q24H. Received a total of 2 doses. Urine culture showing growth of gram negative rods. Awaiting final report. D/c with keflex, will contact patient if antibiotic is inappropriate. Labs stable. VSS. No orthostasis. PT/OT completed consults on patient this am and patient reports she is at her baseline ambulatory status. Uses rollator at home but has exertional dyspnea due to COPD requiring frequent rest periods. Would benefit from further PT/OT with home health or outpatient to assist with endurance. Appearance: Pleasant, No Apparent Distress and Alert HEENT: MMM, Supple and No JVD CVS: No Murmur, No Rubs and No Gallop Abdomen: Soft, Non-Tender and No Distention Respiratory: No Dyspnea Extremities: No Edema Vital Signs: Most Recent Vital Signs Temperature 98.3 F 11/06/24 10:00 Temperature Source Temporal Artery Scan 11/06/24 10:00 Temperature Source Infrared 11/04/24 19:33 Pulse Rate 87 11/06/24 10:00 Respiratory Rate 16 11/06/24 10:00 Blood Pressure 112/65 11/06/24 10:00 Blood Pressure Mean 80 11/06/24 10:00 Blood Pressure Left Arm 154/82 11/04/24 23:46 Blood Pressure Location Left Arm 11/06/24 10:00 Blood Pressure Position Supine 11/06/24 05:20 O2 Sat by Pulse Oximetry 96 11/06/24 10:00 Oxygen Delivery Method Room Air 11/06/24 10:00 Height 5 ft 3 in 11/04/24 23:46 Weight 79.9 kg 11/04/24 23:46 Imaging: EXAM: CHEST FRONTAL VIEW IMPRESSION: Cardiomegaly and ectasia of the thoracic aorta. Lungs are clear. There is no consolidation, acute infiltrate or pleural fluid. No vascular congestion or pneumothorax. Bones reveal arthritis of the shoulders. Surgical clips right axilla. EXAM: CT HEAD WITHOUT CONTRAST FINDINGS: Ventricular size is normal. Atrophy. Scattered variable white matter attenuation which can be seen with underlying chronic microvascular ischemic change. Rodriguez-white matter interfaces are preserved with no evidence of acute infarct. No evidence of intracranial hemorrhage. No midline shift or mass effect. No ectopia. Mucosal thickening sphenoid sinus. Mastoid air cells are clear. Orbital contents are normal. The calvarium is intact. IMPRESSION: 1. Mild atrophy and white matter attenuation changes compatible with chronic small vessel ischemia 2. Chronic sinusitis. Lab Results Last 24 Hours: 11/06/24 05:08 WBC 4.08 L RBC 3.33 L Hgb 10.0 L Hct 33.8 L MCV 101.5 H MCH 30.0 MCHC 29.6 L RDW Coeff of Zaira 13.5 Plt Count 193 Immature Gran % (Auto) 0.5 Neut % (Auto) 56.8 Lymph % (Auto) 26.2 [place] % (Auto) 12.3 H Eos % (Auto) 3.2 Baso % (Auto) 1.0 Neut # (Auto) 2.3 Lymph # (Auto) 1.1 [place] # (Auto) 0.5 Eos # (Auto) 0.1 Baso # (Auto) 0.0 Immature Gran # (Auto) 0.0 Sodium 137.4 Potassium 4.31 Chloride 105.5 Carbon Dioxide 27.1 Anion Gap 9.11 BUN 22.9 H Creatinine 1.06 Estimated GFR (MDRD) 49.00 BUN/Creatinine Ratio 21.60 Glucose 105.0 Calcium 8.58 Total Bilirubin 0.18 L AST 26.7 ALT 15.5 Alkaline Phosphatase 77.5 Total Protein 5.63 L Albumin 3.16 L Globulin 2.47 Albumin/Globulin Ratio 1.27 Discharge Instructions Discharge Planning: Discharge Planning > 40 minutes If patient is discharged with left ventricular systolic dysfunction: NA Discharged with a beta moe? [] If no, why not? [] Discharged with an cecilia/arb? [] If no, why not? [] Diagnosis: UTI Diet: Regular Activity: as tolerated Medications: Darcie's Discharge Medications: Medications at Discharge (Home Meds & RX) albuterol sulfate 0.63 mg/3 mL solution for nebulization 0.63 mg (3 mL) inhalation Q6H PRN shortness of breath or wheezing #90 mL 06/28/24 albuterol sulfate 90 mcg/actuation aerosol inhaler 2 inh inhalation Q6H PRN shortness of breath or wheezing 90 days #8.5 grams 10/20/24 amlodipine 5 mg tablet 5 mg PO QDAY 90 days #90 tabs 10/20/24 budesonide 160 mcg-glycopyr 9 mcg-formot 4.8 mcg/actuation HFA inhaler (Breztri Aerosphere) 2 inh inhalation BID 10/20/24 bumetanide 1 mg tablet 1 mg PO QDAY PRN weight gain/ swelling #90 tabs 10/20/24 bupropion HCl 150 mg tablet,12 hr sustained-release 150 mg PO QAM 90 days #90 ea 10/20/24 bupropion HCl 300 mg 24 hr tablet, extended release 300 mg PO QAM 90 days #90 tabs 10/20/24 duloxetine 30 mg capsule,delayed release 30 mg PO QDAY #30 caps 10/20/24 duloxetine 60 mg capsule,delayed release 60 mg PO QDAY #90 caps 10/20/24 lisinopril 40 mg tablet 40 mg PO QDAY 90 days #90 tabs 10/20/24 rivaroxaban 20 mg tablet (Xarelto) 20 mg PO QDAY #90 tabs 10/20/24 ergocalciferol (vitamin D2) 1,250 mcg (50,000 unit) capsule See Rx Instructions .Route .COMPLEX #12 caps 10/24/24 mecobalamin (vitamin B12) 1,000 mcg disintegrating tablet,sublingual 1,000 mcg sublingual QDAY 30 days #30 tabs 10/30/24 Discharge Plan Discharge Discharge Orders: Discharge Patient (ONCE); Ordered 11/06/24 Ordered By: LAN BALDWIN Activity Restrictions/Additional Instructions: Diagnosis: UTI Diet: Regular Activity: as tolerated Medications: [facility] Instructions: Urinary Tract Infection in Women (GEN) Care Plan Goals: Problem: Infection Goal #1: No signs/symptoms of infection Instructions: Monitor for sign/symptoms of infection Monitor temperature Goal #2: White blood cell counts Within Normal Limits Instructions: Obtain labs per physician orders Patient Disposition: HOME WITH FAMILY CARE Prescriptions: New cephalexin 500 mg capsule 500 mg PO BID Qty: 10 0RF Continued ergocalciferol (vitamin D2) 1,250 mcg (50,000 unit) capsule See Rx Instructions .ROUTE .COMPLEX Qty: 12 0RF Dose Instruction: TAKE ONE CAPSULE EVERY WEEK Rx Instructions: TAKE ONE CAPSULE EVERY WEEK mecobalamin (vitamin B12) 1,000 mcg tablet,disintegrating 1,000 mcg sublingual QDAY 30 Days Qty: 30 1RF Patient Comments: New med, patient has not started as of yet Rx Instructions: place tablet under tongue and allow to dissolve for at least30 secs before swallowing Breztri Aerosphere 160-9-4.8 mcg/actuation HFA aerosol inhaler 2 inh inhalation BID albuterol sulfate 90 mcg/actuation HFA aerosol inhaler 2 inh inhalation Q6H PRN (Reason: shortness of breath or wheezing) 90 Days Qty: 8.5 2RF lisinopril 40 mg tablet 40 mg PO QDAY 90 Days Qty: 90 0RF Xarelto 20 mg tablet 20 mg PO QDAY Qty: 90 1RF Rx Instructions: must administer with evening meal duloxetine 60 mg capsule,delayed release(DR/EC) 60 mg PO QDAY Qty: 90 1RF duloxetine 30 mg capsule,delayed release(DR/EC) 30 mg PO QDAY Qty: 30 2RF bupropion HCl 300 mg tablet extended release 24 hr 300 mg PO QAM 90 Days Qty: 90 1RF bupropion HCl 150 mg tablet sustained-release 12 hr 150 mg PO QAM 90 Days Qty: 90 1RF bumetanide 1 mg tablet 1 mg PO QDAY PRN (Reason: weight gain/ swelling) Qty: 90 0RF amlodipine 5 mg tablet 5 mg PO QDAY 90 Days Qty: 90 1RF albuterol sulfate 0.63 mg/3 mL solution for nebulization 0.63 mg inhalation Q6H PRN (Reason: shortness of breath or wheezing) Qty: 90 2RF Did you review [place] PUBLIC RELATIONS ASSOCIATE for ALL controlled substances?: No Discussed opioids are addictive and Narcan is available by prescription or from pharmacy.: No Condition: Stable Referrals: ANDREA MCCLURE APRN [NURSE PRACTITIONER] - 11/14/24 12:45 pm
== END 2024-11-06 12:40 | disposition home or self-care (01) ==
LOC: ED 19:27 → MEDSURG B 19:27
PROVIDERS: ADMIT Hospitalist; ATTEND Nurse Practitioner Family
DX: M19.012 Primary osteoarthritis, left shoulder; Z51.81 Encounter for therapeutic drug level monitoring; M25.552 Pain in left hip; J32.9 Chronic sinusitis, unspecified; N39.0 Urinary tract infection, site not specified; I10 Essential (primary) hypertension; F32.A Depression, unspecified; W01.0XXA Fall on same level from slipping, tripping and stumbling without subsequent striking against object, initial encounter; M25.78 Osteophyte, vertebrae; Z96.642 Presence of left artificial hip joint; Z79.899 Other long term (current) drug therapy; M25.551 Pain in right hip; M16.11 Unilateral primary osteoarthritis, right hip; R07.9 Chest pain, unspecified; I48.0 Paroxysmal atrial fibrillation; I77.810 Thoracic aortic ectasia; Z20.822 Contact with and (suspected) exposure to COVID-19; M19.011 Primary osteoarthritis, right shoulder; J44.9 Chronic obstructive pulmonary disease, unspecified; M43.16 Spondylolisthesis, lumbar region; I51.7 Cardiomegaly; R06.02 Shortness of breath

== ENCOUNTER 2025-09-25 18:22 | Observation (INO) ==
[2025-09-25 18:48] LABS: IMMATURE GRANULOCYTE # (AUTO) 0.0 (0.0-1.0); IMMATURE GRANULOCYTE % (AUTO) 0.4 % (0.0-5.0); RDW COEFFICIENT OF VARIATION 13.1 % (11.6-14.8)
--- NOTE | 2025-09-25 18:48 | ED.PDOC ---
General HPI ED Provider: Dr. GENEVIEVE HASKINS MD Chief Complaint: Shortness of Air Stated Complaint: Patient is an 85-year-old female that was brought in by EMS for shortness of breath. Patient has a history of CHF and COPD. Patient stated that she was having a COPD exacerbation. She stated that they changed her treatment for COPD to Arformoterol and budesonide. She stated that she needs someone to help her at home with her treatments. Patient stated that she has not been compliant with her medication. She stated that she is not on home O2. EMS stated that they put her on 3 L nasal cannula to help keep her O2 sat above 95. In the emergency department patient is on 100% on 2 L. Patient was able to be weaned off any O2 and stayed above 94%. Patient denies any recent illnesses. Patient denies any chest pain, nausea, vomiting, diarrhea, dizziness, syncope, loss of consciousness, or any other acute symptoms or currently mentioned in her HPI. Patient's vital signs are stable currently. Patient's GCS is 15. The patient is alert and oriented person, place, and time. Time Seen by Provider: 09/25/25 18:30 Mode of Arrival: Ambulance Information Source: Patient and EMT Exam Limitations: No limitations Primary Care Provider: SKY QUIROZ MD Nursing and Triage Documentation Reviewed and Agree: Yes Opioid Naive vs. Tolerant What is Opioid Naive?: *Opioid Naive implies the patient is not already taking opioids or not chronically receiving opioids on a daily basis. *PRN dosing is not "usually" associated with tolerance. *Patients are at higher risk of over-sedation and aspiration. What is Opioid Tolerant?: *Opioid Tolerance implies less than the expected response to an opioid. *Acquired tolerance is defined by the patient taking 60mg of oral morphine daily (or equianalgesic dose of another opioid) for 1 week or more. *Often associated with chronic pain. *May take more than usual dose to achieve desired pain control. Review of Systems Review Of Systems Constitutional: Reports No symptoms Respiratory: Reports Shortness of Breath All Other Systems: Reviewed and Negative [facility] Medical History (Updated 09/25/25 @ 19:29 by GENEVIEVE HASKINS MD) Urinary frequency R35.0 - Frequency of micturition (ICD-10) CAD (coronary artery disease) I25.10 - Atherosclerotic heart disease of [place] coronary artery without angina pectoris (ICD-10) DVT (deep venous thrombosis) I82.409 - Acute embolism and thrombosis of unspecified deep veins of unspecified lower extremity (ICD-10) RLS (restless legs syndrome) G25.81 - Restless legs syndrome (ICD-10) Anemia, unspecified D64.9 - Anemia, unspecified (ICD-10) Vitamin B12 deficiency E53.8 - Deficiency of other specified B group vitamins (ICD-10) Nodule of right lung R91.1 - Solitary pulmonary nodule (ICD-10) Breast CA C50.919 - Malignant neoplasm of unspecified site of unspecified female breast (ICD-10) Asthma J45.909 - Unspecified asthma, uncomplicated (ICD-10) Afib I48.91 - Unspecified atrial fibrillation (ICD-10) Depression F32.A - Depression, unspecified (ICD-10) Family History FATHER , Lung CA Lung cancer, Onset Age: 87 Mother Heart disease Social History Smoking and tobacco status: Never smoker Passive smoking exposure: No Alcohol intake: current Alcohol intake frequency: a few times a month Alcohol type: beer and wine Counseling provided: provider counseling Substance use type: does not use Moreila/zoroastrianism: [place] Adopted: No Household members: none Housing: other Marital status: W / Lives independently: Yes (mobile home) Number of children: 3 Number of grandchildren: 11 Highest education level completed: Master's degree Financial difficulty paying for basics: not very hard service: No penitentiary: No Current occupational status: retired Current occupation: Retired Pets and animals: Yes (Cats) Do you think of yourself as: straight/heterosexual Current gender identity: female Seatbelt use: always Drives intoxicated or rides with intoxicated driver/merchandiser: No Water heater temperature set < 120 degrees: Yes Working smoke detector in home: Yes Fire extinguisher in home: No (encouraged to purchase) Carbon monoxide detector in home: No Surgical History History of cataract removal with insertion of prosthetic lens bilateral Aug 2021 Z98.49 - Cataract extraction status, unspecified eye (ICD-10) Z96.1 - Presence of intraocular lens (ICD-10) H/O: hysterectomy 1992 Z90.710 - Acquired absence of both cervix and uterus (ICD-10) History of right mastectomy age 46 Z90.11 - Acquired absence of right breast and nipple (ICD-10) Female Reproductive History Menstrual Hx Hysterectomy: Yes Hx Tubal Ligation: No Physical Exam Physical Exam Appearance: Reports Well-appearing and Well-nourished Ill-appearing: None Pain Distress: None Eyes: Reports Conjunctiva clear ENT: Reports Nose normal and Oropharynx normal Neck: Supple Respiratory: Reports Airway patent, Breath sounds diminished (Diminished breath sounds in the lower lung carreon noted.), Respirations nonlabored and Wheezes (Mild wheezing noted in the mid and lower lung carreon bilaterally.); Denies Crackles or Rhonchi Cardiovascular: Reports No rub, No murmur and Irregular rhythm (Irregularly irregular heart rhythm. Normal rate at 94 bpm.) GI/: Reports Soft, Nontender and Bowel sounds normal Musculoskeletal: Reports Normal strength Skin: Reports Warm, Dry and Normal color Neurological: Reports Sensation intact, Motor intact, Alert and Oriented Psychiatric: Reports Affect appropriate Physician Progress Note Physician Progress Note: Patient is an 85-year-old female that was brought in by EMS for shortness of breath. Patient has a history of CHF and COPD. Patient stated that she was having a COPD exacerbation. She stated that they changed her treatment for COPD to Arformoterol and budesonide. She stated that she needs someone to help her at home with her treatments. Patient stated that she has not been compliant with her medication. She stated that she is not on home O2. EMS stated that they put her on 3 L nasal cannula to help keep her O2 sat above 95. In the emergency department patient is on 100% on 2 L. Patient was able to be weaned off any O2 and stayed above 94%. Patient denies any recent illnesses. Patient denies any chest pain, nausea, vomiting, diarrhea, dizziness, syncope, loss of consciousness, or any other acute symptoms or currently mentioned in her HPI. Patient's vital signs are stable currently. Patient's GCS is 15. The patient is alert and oriented person, place, and time. - Will give the patient a DuoNeb treatment and IV methylprednisolone 125 mg for COPD exacerbation with wheezing and decreased breath sounds in the lower lung carreon. - Will order a chest x-ray, EKG, troponin, and baseline labs due to patient's shortness of breath. - Will order an ABG. -EKG shows atrial fibrillation with a ventricular rate of 93 bpm. Left axis deviation noted. Incomplete right bundle branch block noted. No acute STEMI. EKG interpreted by ER physician. - Chest x-ray shows no acute cardiopulmonary disease. This radiograph was interpreted by the ER physician and over read by radiology. - Will give patient IV bumetanide 1 mg that she has not been taking at home and she has +2 pitting edema at bedside. - Reassessed patient at bedside after her first DuoNeb treatment and patient still has lower lung field decreased lung sounds and tightness. Will give patient a second DuoNeb treatment. - Troponins negative. - Will give the patient IV cefepime 1 g and IV azithromycin 500 mg for COPD exacerbation. (1941) Will contact hospitalist for observational admission. Was unable to reach the hospitalist. Will try again in approximately 5 to 10 minutes. -(1947) spoke to hospitalist, Anurag Govea, [facility] and discussed patient's COPD exacerbation and 2 DuoNeb treatments with IV methylprednisolone as well and IV cefepime 1 g and IV Zithromycin 500 mg, CHF with lower extremity edema and treatment with IV bumetanide 1 mg. Also discussed other pertinent findings. Ms. Govea has agreed to accept this patient for observational admission. Patient's vital signs are stable at time of admission. Course Course 09/25/25 18:40 09/25/25 18:40 Orders, Labs, Meds: Lab Review 09/25/25 09/25/25 09/25/25 18:39 18:40 18:55 WBC 5.62 RBC 3.57 L Hgb 10.7 L Hct 36.5 L MCV 102.2 H MCH 30.0 MCHC 29.3 L RDW Coeff of Zaira 13.1 Plt Count 183 Immature Gran % (Auto) 0.4 Neut % (Auto) 61.4 Lymph % (Auto) 21.7 [place] % (Auto) 11.0 H Eos % (Auto) 4.6 Baso % (Auto) 0.9 Neut # (Auto) 3.5 Lymph # (Auto) 1.2 [place] # (Auto) 0.6 Eos # (Auto) 0.3 Baso # (Auto) 0.1 Immature Gran # (Auto) 0.0 Puncture Site Lbrach Base Excess 2.4 O2 Saturation 96.5 ABG pH 7.45 ABG pCO2 38.0 ABG pO2 82.0 L ABG HCO3 26.4 ABG Total CO2 27.6 H Elver Test N/a Hemoglobin 1.5 Oxyhemoglobin 95.3 Carboxyhemoglobin 1.5 Total Hemoglobin 11.3 L O2 Delivery Device Cannula Oxygen Liter Flow 2.00 Sodium 138.4 Potassium 3.67 Chloride 109.0 H Carbon Dioxide 23.8 Anion Gap 9.27 BUN 14.2 Creatinine 0.65 Estimated GFR (MDRD) 86.00 BUN/Creatinine Ratio 21.84 Glucose 114.3 H Calcium 9.15 Total Bilirubin 0.23 AST 24.0 ALT 16.2 Alkaline Phosphatase 80.1 Troponin I 0.012 NT-Pro-B Natriuret Pep 2830 H Total Protein 5.89 L Albumin 3.51 Globulin 2.38 Albumin/Globulin Ratio 1.47 Influ A Molecular Assay Negative by naat Influ B Molecular Assay Negative by naat RSV Antigen SARS CoV-2 RNA Rapid ROYER Negative 09/25/25 18:56 WBC RBC Hgb Hct MCV MCH MCHC RDW Coeff of Zaira Plt Count Immature Gran % (Auto) Neut % (Auto) Lymph % (Auto) [place] % (Auto) Eos % (Auto) Baso % (Auto) Neut # (Auto) Lymph # (Auto) [place] # (Auto) Eos # (Auto) Baso # (Auto) Immature Gran # (Auto) Puncture Site Base Excess O2 Saturation ABG pH ABG pCO2 ABG pO2 ABG HCO3 ABG Total CO2 Elver Test Hemoglobin Oxyhemoglobin Carboxyhemoglobin Total Hemoglobin O2 Delivery Device Oxygen Liter Flow Sodium Potassium Chloride Carbon Dioxide Anion Gap BUN Creatinine Estimated GFR (MDRD) BUN/Creatinine Ratio Glucose Calcium Total Bilirubin AST ALT Alkaline Phosphatase Troponin I NT-Pro-B Natriuret Pep Total Protein Albumin Globulin Albumin/Globulin Ratio Influ A Molecular Assay Influ B Molecular Assay RSV Antigen Negative by naat SARS CoV-2 RNA Rapid ROYER Orders Category Date Time Status ABG DRAW REQUEST Stat CARDIO 09/25/25 18:31 Completed EKG-(ED & IP/OBS ONLY) Stat CARDIO 09/25/25 18:30 Completed NEBULIZER TREATMENT Stat CARDIO 09/25/25 18:31 Completed NEBULIZER TREATMENT Stat CARDIO 09/25/25 19:23 Completed ABG COOX Stat LAB 09/25/25 18:39 Completed CBC W/ AUTO DIFF Stat LAB 09/25/25 18:40 Completed CMP [COMPREHENSIVE METABOLIC PANEL] Stat LAB 09/25/25 18:40 Completed COVID [SARS COV-2 RNA RAPID ROYER] Stat LAB 09/25/25 18:55 Completed FLU A & B MOLECULAR [FLU A/B MOLECULAR] Stat LAB 09/25/25 18:55 Completed NT-PROBNP Stat LAB 09/25/25 18:40 Completed RAPID STREP SCREEN [MOLECULAR GROUP A STREP] Stat LAB 09/25/25 18:55 Completed RSV Stat LAB 09/25/25 18:56 Completed TROPONIN I Stat LAB 09/25/25 18:40 Completed Azithromycin Inj [Zithromax] 500 mg Meds 09/25/25 19:41 Active 0.9 % Sodium Chloride [Sodium Chloride] 250 ml IV ONCE Bumetanide [Bumex] Meds 09/25/25 19:22 Discontinued 1 mg IVP ONCE STA Cefepime 1 gm Vial [Maxipime 1 gm Vial] 1 gm Meds 09/25/25 19:41 Active 0.9 % Sodium Chloride [Sodium Chloride] 50 ml IV ONCE Ipratropium/Albuterol Neb [Duoneb] Meds 09/25/25 18:30 Discontinued 3 ml NEB ONCE STA Ipratropium/Albuterol Neb [Duoneb] Meds 09/25/25 19:22 Discontinued 3 ml NEB ONCE STA Methylprednisolone Sod Succ/Pf [Solu-Medrol 125 mg] Meds 09/25/25 18:30 Discontinued 125 mg IVP ONCE ONE CHEST, 1V AP ONLY Stat RADS 09/25/25 18:30 Taken Medications Generic Name Dose Route Start Last Admin Trade Name Freq PRN Reason Stop Dose Admin Cefepime HCl 1 gm/ Sodium 50 mls @ 100 mls/hr 09/25/25 19:41 Chloride IV 09/25/25 20:10 ONCE ONE Azithromycin 500 mg/ Sodium 250 mls @ 250 mls/hr 09/25/25 19:41 Chloride IV 09/25/25 20:40 ONCE ONE Discontinued Medications Generic Name Dose Route Start Last Admin Trade Name Freq PRN Reason Stop Dose Admin Albuterol/Ipratropium 3 ml 09/25/25 18:30 09/25/25 19:11 Ipratropium/Albuterol Vial.Neb NEB 09/25/25 18:31 3 ml ONCE STA Administration Albuterol/Ipratropium 3 ml 09/25/25 19:22 09/25/25 19:33 Ipratropium/Albuterol Vial.[facility] 09/25/25 19:23 3 ml ONCE STA Administration Bumetanide 1 mg 09/25/25 19:22 Bumetanide 1 Mg/4 Ml Vial IVP 09/25/25 19:23 ONCE STA Methylprednisolone Sodium Succinate 125 mg 09/25/25 18:30 09/25/25 19:03 Methylprednisolone Sod Succ/Pf 125 Mg/2 Ml Vial IVP 09/25/25 18:31 125 mg ONCE ONE Administration Vital Signs: Temp Pulse Resp BP Pulse Ox 09/25/25 18:23 98.2 F 88 15 158/78 H 100 Discharge Plan Discharge Patient Disposition: PLACED OBSERVATION Discharge Problem: Acute exacerbation of chronic obstructive pulmonary disease, Anemia of chronic disease, Non compliance w medication regimen A-fib Qualifiers: Atrial fibrillation type: unspecified chronic Qualified Code(s): I48.20 - Chronic atrial fibrillation, unspecified Did you review [place] PAVING MACHINE OPERATOR for ALL controlled substances?: Not Applicable ED Provider: GENEVIEVE HASKINS Condition: Stable
[2025-09-25 19:00] LABS: CREATININE 0.65 mg/dL (0.60-1.30)
[2025-09-25] MEDS: SOLU-MEDROL 125 MG IVP ONE (19:03)
[2025-09-25 19:05] LABS: ABG O2 HGB 95.3 % (95-100); ABG PCO2 38.0 mmHg (35-45); ABG PH 7.45 (7.35-7.45); ABG PO2 82.0 mmHg (85-100); BEecf 2.4 (-2.0-3.0); HCO3 26.4 (21-28); TCO2 27.6 (19-24)
[2025-09-25] MEDS: DUONEB NEB STA ×2 (19:11→19:33)
[2025-09-25 19:32] LABS: MOLECULAR FLU A NEGATIVE BY NAAT (NEGATIVE); MOLECULAR FLU B NEGATIVE BY NAAT (NEGATIVE); SARS COV-2 RNA RAPID NAAT NEGATIVE (NEGATIVE)
[2025-09-25 19:33] LABS: RSV MOLECULAR NEGATIVE BY NAAT (NEGATIVE)
[2025-09-25] MEDS: BUMEX IVP STA (19:58)
[2025-09-25] MEDS: MAXIPIME 1 GM VIAL 1 GM in SODIUM CHLORIDE 50 ML IV ONE (19:59)
[2025-09-25] MEDS: MAXIPIME 1 GM VIAL ONE (19:59)
[2025-09-25 20:46] LABS: BORDETELLA PARAPERTUSSIS (PCR) NOT DETECTED (NOT DETECT); BORDETELLA PERTUSSIS (PCR) NOT DETECTED (NOT DETECT); CHLAMYDIA PNEUMONIAE (PCR) NOT DETECTED (NOT DETECT); CORONAVIRUS 229E (PCR) NOT DETECTED (NOT DETECT); CORONAVIRUS HKU1 (PCR) NOT DETECTED (NOT DETECT); CORONAVIRUS NL63 (PCR) NOT DETECTED (NOT DETECT); CORONAVIRUS OC43 (PCR) NOT DETECTED (NOT DETECT); HUMAN METAPNEUMOVIRUS (PCR) NOT DETECTED (NOT DETECT); HUMAN RHINOVIRUS/ENTEROV (PCR) NOT DETECTED (NOT DETECT); INFLUENZA A H1 (PCR) NOT DETECTED (NOT DETECT); INFLUENZA A H1-2009 (PCR) NOT DETECTED (NOT DETECT); INFLUENZA A H3 (PCR) NOT DETECTED (NOT DETECT); INFLUENZA B (PCR) NOT DETECTED (NOT DETECT); MYCOPLASMA PNEUMONIAE (PCR) NOT DETECTED (NOT DETECT); PARAINFLUENZA VIRUS 1 (PCR) NOT DETECTED (NOT DETECT); PARAINFLUENZA VIRUS 2 (PCR) NOT DETECTED (NOT DETECT); PARAINFLUENZA VIRUS 3 (PCR) NOT DETECTED (NOT DETECT); PARAINFLUENZA VIRUS 4 (PCR) NOT DETECTED (NOT DETECT); RESPIRATORY SYNCYTIAL V (PCR) NOT DETECTED (NOT DETECT); SARS_COV_2 (PCR) NOT DETECTED (NOT DETECT)
[2025-09-25] MEDS: ZITHROMAX 500 MG in SODIUM CHLORIDE 250 ML IV ONE (20:52)
--- NOTE | 2025-09-25 20:54 | DI ---
EXAM: CHEST RADIOGRAPH TECHNIQUE: Single frontal chest radiograph. HISTORY: Shortness of breath. COMPARISON: 11/04/2024 FINDINGS: Similar configuration of the cardiomediastinal silhouette and central pulmonary vessels. Lungs appear clear. Stable postoperative changes in the right axilla. Degenerative shoulder changes. IMPRESSION: 1. Stable chest without new acute intrathoracic process.
[2025-09-25] MEDS: TYLENOL PO PRN (21:28)
[2025-09-25 21:40] LABS: ADENOVIRUS (PCR) NOT DETECTED (NOT DETECT)
[2025-09-25 22:21] VITALS: BMI 30.8
[2025-09-25] MEDS ORDERED: VENTOLIN HFA IH PRN (22:28)
[2025-09-25] MEDS ORDERED: TYLENOL PO PRN (23:01)
[2025-09-25] MEDS: XARELTO PO SCH (23:03)
[2025-09-25] MEDS: BENADRYL PO ONE (23:03)
[2025-09-26] MEDS: DUONEB NEB SCH (00:30)
[2025-09-26] MEDS: SOLU-MEDROL 40 MG IVP SCH (05:02)
[2025-09-26] MEDS: LASIX IVP SCH ×2 (05:02→13:00)
[2025-09-26 05:16] LABS: IMMATURE GRANULOCYTE # (AUTO) 0.0 (0.0-1.0); IMMATURE GRANULOCYTE % (AUTO) 0.2 % (0.0-5.0); RDW COEFFICIENT OF VARIATION 13.0 % (11.6-14.8)
[2025-09-26 05:37] LABS: CREATININE 0.65 mg/dL (0.60-1.30)
[2025-09-26] MEDS ORDERED: XOPENEX 0.63 MG NEB PRN (07:18)
[2025-09-26] MEDS ORDERED: CYMBALTA PO SCH (09:00)
[2025-09-26] MEDS ORDERED: WELLBUTRIN XL PO SCH (09:00)
[2025-09-26] MEDS ORDERED: BUPROPION HCL 150 MG PO SCH (09:00)
[2025-09-26] MEDS: FLONASE NAS SCH (09:52)
[2025-09-26] MEDS: ZESTRIL PO SCH (09:53)
[2025-09-26] MEDS: ROCEPHIN 1 GM/50 ML D5W 1 GM/50 ML BAG IV SCH (09:53)
[2025-09-26] MEDS: CYMBALTA PO SCH (09:53)
[2025-09-26] MEDS: ZYRTEC PO SCH (09:54)
[2025-09-26] MEDS: NORVASC PO SCH (09:54)
[2025-09-26] MEDS: WELLBUTRIN XL PO SCH (09:54)
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
[2025-09-26] MEDS: LOPRESSOR PO SCH (12:31)
[2025-09-26] MEDS: XARELTO PO SCH (16:42)
[2025-09-26] MEDS: ZITHROMAX PO SCH (20:22)
[2025-09-26] MEDS ORDERED: PULMICORT 0.5 MG/2 ML NEB SCH (21:00)
[2025-09-26] MEDS: PULMICORT 0.5 MG/2 ML NEB SCH (21:05)
[2025-09-27 05:26] LABS: IMMATURE GRANULOCYTE # (AUTO) 0.0 (0.0-1.0); IMMATURE GRANULOCYTE % (AUTO) 0.5 % (0.0-5.0); RDW COEFFICIENT OF VARIATION 13.2 % (11.6-14.8)
[2025-09-27 05:43] LABS: CREATININE 0.98 mg/dL (0.60-1.30)
[2025-09-27 08:21] VITALS: RESP 18
[2025-09-27] MEDS: TOPROL XL PO SCH (09:30)
--- NOTE | 2025-09-27 09:31 | RS.PTINEVL ---
Subjective Patient information Date of Evaluation: 09/27/25 Date of Arrival on Unit: 09/25/25 Admitted From:: Home Diagnosis: acute COPD exacerbation, CHF, AFib Usual Living Arrangement: Alone Living Arrangement Comments: pt lives alone, son lives nearby however does not help often. Home Environment: House and Ramp Medical History: Hypertension, COPD, CHF and Arthritis Medical History Comments:: anxiety/depression, osteoporosis LATEX ALLERGY?: No Surgical History: Knee Replacement Medications: see chart Subjective Information/ Patient Comments:: pt states that she is planning to go to assisted living when she leaves the hospital. pt reports that she cannot do everything at home on her own. Level of function Prior to this admission, the patient could do the following:: Independent Ambulation and Perform Aemt/Cooking Abilities prior to this admission: pt amb short distances with rwx or holding furniture. 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 Current Level of Function: Partially Dependent Current Equipment Used at Home: rwx, w/c Pain Assessement Location everywhere: Description: Aching Pain Behavior: Facial Grimacing Pain Aggravating Factors: Changing Position, Exercise/Activity, Standing and Walking Interventions Objective Patient Orientation: Person, Place, Time and Situation Current Interventions: Telemetry Observation: pt with multiple areas of bug bites to back and legs. Increased thoracic kyphosis Range of Motion ROM Right Upper Extremity AROM: Moderate limitation (decreased shld ROM elbow/wrist/hand WFL's) Left Upper Extremity AROM: Moderate limitation (limited shld ROM elbow/wrist/ferreira d WFL's ) Right Lower Extremity AROM: WFL's Left Lower Extremity AROM: WFL's Muscle Strength Muscle Strength Right Upper Extremity: Moderate Weakness (shld flex 3-/5, elbow flex/ext 3+/5) Left Upper Extremity: Moderate Weakness (shld flex 3-/5, elbow flex/ext 4-/5) Right Lower Extremity: Moderate Weakness (hip flex 3+/5, knee flex/ext 4-/5, ankle 4/5 ) Left Lower Extremity: Moderate Weakness (hip flex 3+/5, knee flex/ext 4-/5, ankle 4/5 ) Sensation Sensation Right Upper Extremity: Intact/Normal Left Upper Extremity: Intact/Normal Right Lower Extremity: Intact/Normal Left Lower Extremity: Intact/Normal Palpation Palpation Findings: Tenderness (BLE) Balance Sitting Balance and Reactions Static Sitting Balance: Good (good-) Dynamic Sitting Balance: Fair Standing Balance and Reactions Static Standing Balance: Poor Dynamic Standing Balance: Poor Functional Mobility Bed Mobility Rolling R/L: Supervision Scooting: Supervision Supine to Sit: CGA Transfers Sit to Stand: CGA Stand to Sit: CGA Stand Pivot Transfers: CGA Safety Awareness Safety Awareness: Fair АЛЕКСАНДР INDEX SCORE: n/a Ambulation Ambulation Assistive Device Used: Rolling Walker Orthotic/Prosthetic Device: No Distance: 25ft Assistance needed with Ambulation: CGA and Min Assist Gait Deviations: Forward posture and Short stride Ambulation Comments: pt with SOA with ambulation and 1 episode of R knee buckling which pt was able to maintain balance with min x 1 Factors Affecting Ambulation: Decreased Balance, Breathing/O2 Saturation, Pain, Weakness, Decreased Coordination, Decreased ROM, Decreased Safety and Limited Endurance Treatment time Units charged Gait trainin Time with patient Length of Evaluation: 19 Total treatment time: 27 Patient Education Education Patient Education: Home Exercise Program and Education of Plan of Care Teaching Recipient: Patient Teaching Methods: Discussion Comments: discussion regarding POC and dc planning Assessment Assessment Problem List:: Decreased level of function, Requires training/education, Decreased safety/Risk of falls, Weakness and Pain limits previous level of function Rehab Potential: Good Further Therapy Indicated?: Yes Candidate for Swing Bed for Therapy Services?: Feel pt may benefit from swing bed for therapy to improve strength and functional mobility to decrease fall risk. Evaluation Complexity: HISTORY: Medium, EXAM OF BODY SYSTEMS: Medium, CLINICAL PRESENTATION: Medium and CLINICAL DECISION MAKING: Medium Patient's Goal(s): Go to assisted living as independent as possible. Short Term Goals GOAL #1: pt demonstrate rolling and scooting to edge of bed independently. Goal to be met by: 10/01/25 GOAL #2: Transfer sup to/from sit SBA Goal to be met by: 10/01/25 GOAL #3: Transfer sit to/from stand SBA to CGA Goal to be met by: 10/01/25 GOAL #4: pt amb with rwx 50ft with CGA with no LOB Goal to be met by: 10/01/25 GOAL #5: Improve BLE strength 4/5 Goal to be met by: 10/02/25 Mcfp Goals GOAL #1: pt transfer sup to/from sit to/from stand sBA to independent. Goal to be met by: 10/04/25 GOAL #2: pt amb with rwx functional household distance with improved posture and SBA Goal to be met by: 10/04/25 GOAL #3: Improve dyn stand balance fair- Goal to be met by: 10/04/25 Plan Plan of Care: Therapeutic EX and Therapeutic Activity Other:: gait training Frequency of Treatment: 1-2 X day, as tolerated Duration of Treatment: 1 Week Anticipated Discharge Destination: Assisted Living Facility Treatment Diagnosis (ICD 10 Codes): impaired balance R26.81 gait difficulty R26.2 muscle weakness M62.81 fall risk Z91.81 Has the Physician been added for Co-signature?: Yes
[2025-09-27 09:43] VITALS: TEMP 97.9
--- NOTE | 2025-09-27 10:45 | PCM.PROG ---
Date/Time Seen Date Seen by Provider: 09/27/25 Time Seen by Provider: 09:00 Provider Provider: TESSY KEYS, [facility] Chief Complaint Chief Complaint: COPD EXACERBATION Subjective Subjective: Reports SOB on exertion. Feels better at rest. Edema to BLE improving. Voiced concerns of another medication added. States she saw Dr. Boris Mosley ardiabelardo one time and he started her on a medication. Explained benefit and need for being in on the medication and risk of not taking with Afib. Concerned about BP dropping in addition to her 2 other BP medications. Discussed we would be monitoring the BP and will make further changes if needed. Requested to discuss all her medications and see if there is any that she can come off of. States she hasn't been able to take her medications over the last 3 weeks because of the distance to getting to her medications in her home. Has chairs strategically placed for frequent rest periods. Objective Appearance: Positive No Apparent Distress, Alert and Oriented x3 and Ill- Appearing Chest/Lungs: Positive Symmetrical With Equal Breath Sounds, Clear to Auscultation Bilaterally and Good Air Movement all 4 Lung Torres; Negative Rales, Rhonci or Wheezes Heart: Positive Pulses Normal, Murmur and Irregular Rhythm GI/: Positive Soft, Nontender, Bowel Sounds Normal and No Distention Musculoskeletal: Positive Other (+1-2 pitting edema BLE) Neurological: Positive Sensation Intact, Motor intact, Reflexes Intact, Alert, Oriented and Other (generalized weakness/deconditioning) Vital Signs Vital Signs: Vital Signs: Last 24 Hours 09/26/25 11:00 09/26/25 12:00 09/26/25 12:52 Temperature Temperature Source Pulse Rate Respiratory Rate Blood Pressure Blood Pressure Mean Blood Pressure Location Blood Pressure Position O2 Sat by Pulse Oximetry Oxygen Delivery Method Room Air Room Air Room Air Weight Telemetry Type Telemetry Monitoring Irregular Telemetry Rate (Approximate) Telemetry Heart Rate EKG QRS Interval Telemetry Strip Reading 09/26/25 13:00 09/26/25 14:00 09/26/25 14:00 Temperature 98.2 F Temperature Source Temporal Artery Scan Pulse Rate 103 H Respiratory Rate Blood Pressure 116/71 Blood Pressure Mean 86 Blood Pressure Location Left Arm Blood Pressure Position Supine O2 Sat by Pulse Oximetry 94 L Oxygen Delivery Method Room Air Room Air Weight Telemetry Type Remote Telemetry Telemetry Monitoring Irregular Telemetry Rate (Approximate) 110-120 BPM Telemetry Heart Rate 112 H EKG QRS Interval 0.06 Telemetry Strip Reading afib 09/26/25 15:00 09/26/25 16:00 09/26/25 17:00 Temperature Temperature Source Pulse Rate Respiratory Rate Blood Pressure Blood Pressure Mean Blood Pressure Location Blood Pressure Position O2 Sat by Pulse Oximetry Oxygen Delivery Method Room Air Room Air Room Air Weight Telemetry Type Telemetry Monitoring Irregular Telemetry Rate (Approximate) Telemetry Heart Rate EKG QRS Interval Telemetry Strip Reading 09/26/25 18:00 09/26/25 18:00 09/26/25 19:00 Temperature 98.4 F Temperature Source Temporal Artery Scan Pulse Rate 93 Respiratory Rate Blood Pressure 128/73 Blood Pressure Mean 91 Blood Pressure Location Left Arm Blood Pressure Position Supine O2 Sat by Pulse Oximetry 95 Oxygen Delivery Method Room Air Room Air Weight Telemetry Type Remote Telemetry Telemetry Monitoring Continues Irregular Telemetry Rate (Approximate) 80-90 BPM Telemetry Heart Rate EKG QRS Interval 0.07 Telemetry Strip Reading A-FIB WITH PVC 09/26/25 19:00 09/26/25 19:30 09/26/25 20:00 Temperature Temperature Source Pulse Rate Respiratory Rate 20 Blood Pressure Blood Pressure Mean Blood Pressure Location Blood Pressure Position O2 Sat by Pulse Oximetry Oxygen Delivery Method Room Air Room Air Room Air Weight Telemetry Type Telemetry Monitoring Irregular Telemetry Rate (Approximate) Telemetry Heart Rate EKG QRS Interval Telemetry Strip Reading 09/26/25 21:00 09/26/25 22:00 09/26/25 22:00 Temperature 97.7 F Temperature Source Temporal Artery Scan Pulse Rate 93 Respiratory Rate 20 Blood Pressure 135/83 Blood Pressure Mean 100 Blood Pressure Location Left Arm Blood Pressure Position Supine O2 Sat by Pulse Oximetry 95 Oxygen Delivery Method Room Air Room Air Room Air Weight Telemetry Type Telemetry Monitoring Irregular Telemetry Rate (Approximate) Telemetry Heart Rate EKG QRS Interval Telemetry Strip Reading 09/26/25 23:00 09/27/25 00:00 09/27/25 01:00 Temperature Temperature Source Pulse Rate Respiratory Rate Blood Pressure Blood Pressure Mean Blood Pressure Location Blood Pressure Position O2 Sat by Pulse Oximetry Oxygen Delivery Method Room Air Room Air Room Air Weight Telemetry Type Telemetry Monitoring Irregular Telemetry Rate (Approximate) Telemetry Heart Rate EKG QRS Interval Telemetry Strip Reading 09/27/25 01:00 09/27/25 02:00 09/27/25 02:00 Temperature 97.7 F Temperature Source Temporal Artery Scan Pulse Rate 83 Respiratory Rate 16 Blood Pressure 135/74 Blood Pressure Mean 94 Blood Pressure Location Left Arm Blood Pressure Position Supine O2 Sat by Pulse Oximetry 91 L Oxygen Delivery Method Room Air Room Air Weight Telemetry Type Remote Telemetry Telemetry Monitoring Continues Irregular Telemetry Rate (Approximate) Telemetry Heart Rate 82 EKG QRS Interval 0.07 Telemetry Strip Reading A-FIB WITH PVC' S 09/27/25 03:00 09/27/25 04:00 09/27/25 05:00 Temperature Temperature Source Pulse Rate Respiratory Rate Blood Pressure Blood Pressure Mean Blood Pressure Location Blood Pressure Position O2 Sat by Pulse Oximetry Oxygen Delivery Method Room Air Room Air Room Air Weight Telemetry Type Telemetry Monitoring Irregular Telemetry Rate (Approximate) Telemetry Heart Rate EKG QRS Interval Telemetry Strip Reading 09/27/25 05:20 09/27/25 05:25 09/27/25 05:55 Temperature 97.4 F L Temperature Source Temporal Artery Scan Pulse Rate 86 Respiratory Rate 20 Blood Pressure 139/81 Blood Pressure Mean 100 Blood Pressure Location Left Arm Blood Pressure Position Supine O2 Sat by Pulse Oximetry 95 Oxygen Delivery Method Room Air Room Air Weight 78.9 kg Telemetry Type Telemetry Monitoring Irregular Telemetry Rate (Approximate) Telemetry Heart Rate EKG QRS Interval Telemetry Strip Reading 09/27/25 07:00 09/27/25 07:00 09/27/25 08:00 Temperature Temperature Source Pulse Rate Respiratory Rate 18 Blood Pressure Blood Pressure Mean Blood Pressure Location Blood Pressure Position O2 Sat by Pulse Oximetry Oxygen Delivery Method Room Air Room Air Weight Telemetry Type Remote Telemetry Telemetry Monitoring Irregular Telemetry Rate (Approximate) Telemetry Heart Rate 86 EKG QRS Interval 0.11 H Telemetry Strip Reading A-fib with BBB and PVCs 09/27/25 08:00 09/27/25 09:00 09/27/25 09:42 Temperature 97.9 F Temperature Source Temporal Artery Scan Pulse Rate 85 Respiratory Rate 18 Blood Pressure 119/62 Blood Pressure Mean 81 Blood Pressure Location Right Arm Blood Pressure Position Sitting O2 Sat by Pulse Oximetry 95 Oxygen Delivery Method Room Air Room Air Room Air Weight Telemetry Type Telemetry Monitoring Irregular Telemetry Rate (Approximate) Telemetry Heart Rate EKG QRS Interval Telemetry Strip Reading 09/27/25 10:00 Temperature Temperature Source Pulse Rate Respiratory Rate Blood Pressure Blood Pressure Mean Blood Pressure Location Blood Pressure Position O2 Sat by Pulse Oximetry Oxygen Delivery Method Room Air Weight Telemetry Type Telemetry Monitoring Irregular Telemetry Rate (Approximate) Telemetry Heart Rate EKG QRS Interval Telemetry Strip Reading Lab Results Lab Results: Lab Results: Last 24 Hours 09/27/25 05:13 WBC 7.37 RBC 3.44 L Hgb 10.2 L Hct 34.7 L MCV 100.9 H MCH 29.7 MCHC 29.4 L RDW Coeff of Zaira 13.2 Plt Count 165 Immature Gran % (Auto) 0.5 Neut % (Auto) 89.4 H Lymph % (Auto) 6.4 L [place] % (Auto) 3.7 Eos % (Auto) 0.0 Baso % (Auto) 0.0 Neut # (Auto) 6.6 Lymph # (Auto) 0.5 L [place] # (Auto) 0.3 L Eos # (Auto) 0.0 Baso # (Auto) 0.0 Immature Gran # (Auto) 0.0 Sodium 138.3 Potassium 4.03 Chloride 105.3 Carbon Dioxide 25.9 Anion Gap 11.13 BUN 30.9 H Creatinine 0.98 Estimated GFR (MDRD) 54.00 BUN/Creatinine Ratio 31.53 Glucose 149.7 H Calcium 9.08 Total Bilirubin 0.31 AST 32.6 ALT 22.3 Alkaline Phosphatase 66.9 Total Protein 5.76 L Albumin 3.49 L Globulin 2.27 Albumin/Globulin Ratio 1.53 Additional Comments Additional Comments: I have independently reviewed and interpreted the labs/EKGs/imaging ordered during this hospital stay. I have reviewed outside records that are available in our EMR that pertain to medical stay including imaging/notes/labs from previous visits. Active Medications Active Medications: Medications Generic Name Dose Route Start Last Admin Trade Name Freq PRN Reason Stop Dose Admin Acetaminophen 650 mg 09/25/25 20:38 09/27/25 09:56 Acetaminophen 325 Mg Tablet PO 650 mg Q4H PRN Administration Mild Pain Albuterol Sulfate 2 puff 09/25/25 22:28 Albuterol Sulfate 8 Gm Inhaler IH Q6H PRN Bronchospasm Albuterol/Ipratropium 3 ml 09/26/25 00:00 09/27/25 04:59 Ipratropium/Albuterol Vial.Neb NEB 3 ml RTQ6H DORINDA Administration Amlodipine Besylate 5 mg 09/26/25 09:00 09/27/25 09:16 Amlodipine Besylate 5 Mg Tablet PO 5 mg DAILY DORINDA Administration Azithromycin 500 mg 09/26/25 21:00 09/26/25 20:22 Azithromycin 250 Mg Tablet PO 09/29/25 20:59 500 mg BEDTIME DORINDA Administration Budesonide 0.5 mg 09/26/25 21:00 09/27/25 05:09 Budesonide 0.5 Mg/2 Ml Vial.Neb NEB 0.5 mg RTBID DORINDA Administration Bupropion HCl 450 mg 09/26/25 09:00 09/27/25 09:15 Bupropion Hcl 150 Mg Tab.Er.24h PO 450 mg DAILY DORINDA Administration Cetirizine HCl 10 mg 09/26/25 09:00 09/27/25 09:42 Cetirizine Hcl 10 Mg Tablet PO Not Given DAILY DORINDA Duloxetine HCl 90 mg 09/26/25 09:00 09/27/25 09:02 Duloxetine Hcl 30 Mg Capsule.Dr PO 90 mg DAILY DORINDA Administration Fluticasone Propionate 2 spray 09/26/25 09:00 09/27/25 09:01 Fluticasone Propionate 16 Gm Nasal [place] LUCIO 2 spray DAILY DORINDA Administration Furosemide 20 mg 09/27/25 21:00 Furosemide Inj 20 Mg/2 Ml Vial IVP BID DORINDA CEFTRIAXONE/D5W 1 GM PREMIX 1 gm in 50 mls @ 100 mls/hr 09/26/25 09:00 09/27/25 08:45 Rocephin 1 Gm/50 Ml D5w IV 09/29/25 08:59 100 mls/hr DAILY DORINDA Administration Levalbuterol HCl 0.63 mg 09/26/25 07:18 Levalbuterol Hcl 0.63 Mg/3 Ml Vial.Neb NEB Q6H PRN Bronchospasm Lisinopril 40 mg 09/26/25 09:00 09/27/25 09:01 Lisinopril 40 Mg Tablet PO 40 mg DAILY DORINDA Administration Methylprednisolone Sodium Succinate 40 mg 09/26/25 05:00 09/27/25 05:22 Methylprednisolone Sod Succ/Pf 40 Mg/Ml Vial IVP 40 mg Q8HR DORINDA Administration Metoprolol Succinate 25 mg 09/27/25 09:00 09/27/25 09:30 Metoprolol Succinate 25 Mg Tab.Er.24h PO 25 mg DAILY DORINDA Administration Rivaroxaban 20 mg 09/26/25 17:00 09/26/25 16:42 Rivaroxaban 10 Mg Tablet PO 20 mg QPM DORINDA Administration Sodium Chloride 1 syr 09/26/25 05:00 09/27/25 05:22 0.9% Sodium Chloride 10 Ml Disp.Syrin IVF 1 syr Q8HR DORINDA Administration Plan Plan: 1. Acute COPD Exacerbation - rocephin and azith, steroids, nebs; follows with Dr. Lgoan with Pulmonology has been prescribed triple therapy nebs but does not understand how to use them, will restart brovana, we do not carry the other medications she is prescribed 2. CHFpEF - Diuresing well, decrease lasix 20 mg Q12H, I&O, daily weight, 1800 mL fluid restriction, echo showed EF 65-70% with mild MR and TR 3. Uncontrolled Afib - HR 110s-120s, started metoprolol 12.5 mg bid, xarelto for anticoagulation; upon further discussion with patient and [facility] chart review. Patient follows with Dr. Escalante - Cardiology. Per his last note, she is to be taking metoprolol XL 25 mg daily and has not been due to only seeing him once and doesn't understand the need for it. Restarted the toprol XL today. Needs appointment with Dr. Escalante to continue to follow Afib 4. HTN - chronic, continue home medications 5. Anxiety/Depression - continue home medications 6. Weakness/Deconditioning - PT/OT to eval and treat On admission, patient was found to have flea bites scattered to extremities and back as well as cat litter to bottoms of feet. Patient reports that she is unable to care for her home or herself due to dyspnea on exertion. Has family close by that drops off groceries but doesn't do much else for her. 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 Feel that this patient would benefit from PT/OT due to deconditioning. States she would prefer to go back to her home if it could be cleaned up a bit but is not opposed to the idea of going to assisted living. DVT Prophylaxis: Xarelto Dispo: Patient good candidate for swingbed per PT/OT. Awaiting insurance at this time to determine today's disposition plans Review Statement Review Statement: I have personally discussed and reviewed the patient's visit/currently labs/imaging/decision making with Dr. Alcocer, my supervising attending. Greater that 50 minutes spent with patient, 50% of the time spent with this patient was devoted to counseling and coordination of care.
[2025-09-27] MEDS ORDERED: DUONEB NEB PRN (10:54)
--- NOTE | 2025-09-27 12:42 | RS.OTINEVL ---
Subjective Patient information Date of Evaluation: 09/27/25 Date of Arrival on Unit: 09/25/25 Admitted From:: Home Diagnosis: COPD exacerbation, SOA with exertion PRECAUTIONS: fall risk Usual Living Arrangement: Alone Living Arrangement Comments: pt lives alone, son lives nearby however does not help often. Home Environment: House and Ramp Medical History: Hypertension, COPD, CHF and Arthritis Medical History Comments:: anxiety/depression, osteoporosis LATEX ALLERGY?: No Surgical History: Knee Replacement Medications: see chart Subjective Information/ Patient Comments:: "The convinced me to move down here a nd they don't want to help me. People get mad at family when you ask for help. 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 Pt uses the flushable wipes at home to wash off. Current Equipment Used at Home: rwx, w/c Pain Assessment Pain Side: left Pain Location Body Site: Shoulder Pain Aggravating Factors: ADL's Pain Alleviating Factors: Medication Interventions Objective Patient Orientation: Person, Place, Time and Situation Observation: Pt has moderately impaired LUE shoulder AROM. RUE is not as severe. 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 Pt requires assist with BLE dressing. Pt reports she does not need help cutting her food. Pt is independent with self feeding. Pt washes off with the flushable wipes. Pt reports she has not had a bath or shower in 3 years. Pt is min A with LE dressing. Pt wears depends and does not brush her teeth. Interventions ROM Right Upper Extremity AROM: Slight limitation Left Upper Extremity AROM: Moderate limitation Comments: Pt has increased pain with LUE AROM and trying to use it functionally. Strength Right Upper Extremity: Mild Weakness Left Upper Extremity: Moderate Weakness Comments:: RUE 4-/5. LUE is 3-/5. Sensation Right Upper Extremity: Intact/Normal Left Upper Extremity: Intact/Normal ADL Skills Self Feeding Self Feeding: Independent Grooming Grooming: Min Assist Grooming Set-up: Sitting Comments:: Pt appears very weak and has a difficult time lasting with functional mobility and ADLs. Bathing Bathing UE: Independent Bathing LE: CGA Bathing Set-up: Bedside and Sitting Comments:: Pt has not had a shower in 3 years. Pt washes off with wet flushables. Dressing Dressing UE: Min Assist Dressing LE: Min Assist Toilet Management Toilet Hygiene: Min Assist Toilet Clothing Management: Min Assist Comments Comments:: Pt requires extra time to complete her ADLs. Functional Mobility Transfers Sit to Stand: CGA Stand to Sit: [facility] Stand Pivot Transfers: CGA Ambulation Weight Bearing Status: FWB Assistive Device Used: Rolling Walker Assistance needed with Ambulation: CGA Safety Awareness Safety Awareness: Good АЛЕКСАНДР INDEX SCORE: . Additional Treatment Performed Additional units charged ADL: 18 Time with patient Length of Evaluation: 18 Total treatment time: 45 Activities Would you be interested in leaving your room for activities?: Yes Would you enjoy group activities?: Yes Do you have difficulty with your vision?: Yes Patient Interests:: Watching Television and Visiting/Socializing Patient Education Patient Education: Education of diagnosis, Home Safety and Education of Plan of Care Teaching Recipient: Patient Teaching Methods: Discussion and Demonstration Assessment Problem List:: Decreased level of function, Requires training/education, Decreased safety/Risk of falls, Weakness and Pain limits previous level of function Rehab Potential: Good Further Therapy Indicated?: Yes Evaluation Complexity: HISTORY: Medium, EXAM OF BODY SYSTEMS: Medium and CLINICAL DECISION MAKING: Medium Patient's Goal(s): To get strong enough to be able to go live in [place] at [facility]. Short Term Goals Goals GOAL 1: Pt to increase toilet transfers to Mod-I with RW. Goal to be met by: 09/30/25 GOAL 2: Pt to increase LUE to 4-/5 to increase I with ADLS. Goal to be met by: 10/01/25 GOAL 3: Pt to increase LUE AROM to be WFL to increase I of ADLS. Goal to be met by: 10/01/25 GOAL 4: Pt to be Mod-I with LB dressing using AD PRN. Goal to be met by: 10/01/25 GOAL 5: Pt to be SUP with grooming standing at the sink. Goal to be met by: 10/01/25 Store Lead Goals GOAL 1: Pt to be (I) with ADLS. Goal to be met by: 10/02/25 GOAL 2: Pt to increase BUE strength to 4+/5. Goal to be met by: 10/02/25 GOAL 3: Pt to increase activity tolerance to 15 minutes with one rest. Goal to be met by: 10/02/25 Plan Plan of Care: Therapeutic EX, Neuromuscular Re-Educ, Therapeutic Activity and Self-Care/Home Management Frequency of Treatment: 1-2 X day, as tolerated Duration of Treatment: 5-7 days Anticipated Discharge Destination: Assisted Living Facility Treatment Diagnosis (ICD 10 Codes): Weakness M62.81, Z74.1 Need for assistance with ADLS. Has the Physician been added for Co-signature?: Yes
[2025-09-27 13:55] VITALS: BP 114/69; PULSE 77
--- NOTE | 2025-09-27 15:43 | DCSUM ---
Admission Date Admission Date: 09/25/25 Discharge Date Discharge Date: 09/27/25 Admission Diagnosis Admission Diagnosis: 1. Acute COPD Exacerbation 2. CHFpEF Exacerbation 3. Uncontrolled Afib 4. HTN 5. Anxiety/Depression 6. Weakness/Deconditioning Discharge Diagnosis Discharge Diagnosis: 1. Acute COPD Exacerbation - Improving 2. CHFpEF Exacerbation - Improving 3. Uncontrolled Afib - Improved 4. HTN - chronic, stable 5. Anxiety/Depression - chronic, stable 6. Weakness/Deconditioning - PT/OT. Hospital Provider Hospital Provider: TESSY KEYS, [facility] [place] Primary Care Physician: SKY QUIROZ MD Summary of History and Physical Summary of History and Physical: 85 yo female presented to the ER with pmh of COPD, Afib, CAD, HTN, Anemia presented to the ER for SOB. Patient states that she has been having worsening SOB over the last several days and progressively worsened yesterday. O2 sat found to be in the 80s on EMS arrival. She reported to the ER doc that she needs someone to help her at home with her treatments. Patient stated that she has not been compliant with her medication. EMS stated that they put her on 3 L nasal cannula to help keep her O2 sat above 95. In the emergency department patient is on 100% on 2 L. Patient was able to be weaned off any O2 and stayed above 94%. Patient denies any recent illnesses. Patient denies any chest pain, nausea, vomiting, diarrhea, dizziness, syncope, loss of consciousness, or any other acute symptoms. Chest x-ray was clear. BNP elevated >2000 with marked edema. Takes bumex at home prn but not regularly. No documented history of CHF in the chart. She was given nebs, steroids, and abx. Admitted to med/surg observation for COPD exacerbation and new onset CHF. Hospital Course Subjective: During stay, patient was treated for COPD exacerbation with rocephin and azith, steroids, nebs. She did not require supplemental oxygen. Follows with Dr. Logan with [facility] and has been prescribed triple therapy nebs but did not understand how to use them. Restarted brovana but do not carry the other medications and do not have access to get them from her home. Also found to have CHF exacerbation. Last echo was 07/2025 with normal EF. Repeat echo obtained and showed EF 65-70% with mild MR and TR. Received lasix 20 mg IV every 8 hours and diuresed well. Edema improved. Lung sounds clear. Still remains short of breath on exertion and conversational dyspnea present. Switched bumex prn to lasix 20 mg daily PO Follows with Dr. Boris Sharpe at [facility] for Afib. Per his note, patient was prescribed metoprolol XL 25 mg daily and patient has not been taking it due to being told by different providers that she doesn't have Afib. On admission, telemetry showed afib consistently with a rate in the 110s-120s. Started metoprolol tartrate 12.5 mg bid prior to discovering Dr. Escalante/s notes. Restarted extended release today and tolerated well. On admission, patient was found to have flea bites scattered to extremities and back as well as cat litter to bottoms of feet. Patient reports that she is unable to care for her home or herself due to dyspnea on exertion. Has family close by that drops off groceries but doesn't do much else for her. outreach worker had extensive conversation regarding discharge plans. Feel that this patient would benefit from PT/OT due to deconditioning. States she would prefer to go back to her home if it could be cleaned up a bit but is not opposed to the idea of going to assisted living. Today, she reports SOB on exertion. Feels better at rest. Edema to BLE improving. Voiced concerns of another medication added. States she saw Dr. Escalante - Cardiology one time and he started her on a medication. Explained benefit and need for being in on the medication and risk of not taking with Afib. Concerned about BP dropping in addition to her 2 other BP medications. Discussed we would be monitoring the BP and will make further changes if needed. Requested to discuss all her medications and see if there is any that she can come off of. States she hasn't been able to take her medications over the last 3 weeks because of the distance to getting to her medications in her home. Has chairs strategically placed for frequent rest periods. PT/OT determined patient would be a good candidate for swingbed. Admit to swingbed today. Appearance: Pleasant, No Apparent Distress and Alert HEENT: MMM, Supple and No JVD CVS: No Rubs Abdomen: Soft, Non-Tender and No Distention Respiratory: No Accessory Muscle Use Extremities: Other (+1 pitting edema to ble) Vital Signs: Most Recent Vital Signs Temperature 97.9 F 09/27/25 13:54 Temperature Source Temporal Artery Scan 09/27/25 13:54 Temperature Source Infrared 09/25/25 18:23 Pulse Rate 77 09/27/25 13:54 Respiratory Rate 18 09/27/25 13:54 Blood Pressure 114/69 09/27/25 13:54 Blood Pressure Mean 84 09/27/25 13:54 Blood Pressure Left Arm 135/95 09/25/25 21:59 Blood Pressure Location Left Arm 09/27/25 13:54 Blood Pressure Position Sitting 09/27/25 13:54 O2 Sat by Pulse Oximetry 94 L 09/27/25 13:54 Oxygen Delivery Method Room Air 09/27/25 13:54 Height 5 ft 3 in 09/25/25 21:59 Weight 78.9 kg 09/27/25 05:20 Telemetry Type Remote Telemetry 09/27/25 13:00 Telemetry Monitoring Continues 09/27/25 13:00 Irregular Telemetry Rate (Approximate) 80-90 BPM 09/26/25 19:00 Telemetry Heart Rate 88 09/27/25 13:00 EKG QRS Interval 0.08 09/27/25 13:00 Telemetry Strip Reading A-Fib with PVCs 09/27/25 13:00 Imaging: EXAM: CHEST RADIOGRAPH TECHNIQUE: Single frontal chest radiograph. HISTORY: Shortness of breath. COMPARISON: 11/04/2024 FINDINGS: Similar configuration of the cardiomediastinal silhouette and central pulmonary vessels. Lungs appear clear. Stable postoperative changes in the right axilla. Degenerative shoulder changes. IMPRESSION: 1. Stable chest without new acute intrathoracic process. Lab Results Last 24 Hours: 09/27/25 05:13 WBC 7.37 RBC 3.44 L Hgb 10.2 L Hct 34.7 L MCV 100.9 H MCH 29.7 MCHC 29.4 L RDW Coeff of Zaira 13.2 Plt Count 165 Immature Gran % (Auto) 0.5 Neut % (Auto) 89.4 H Lymph % (Auto) 6.4 L Sumner % (Auto) 3.7 Eos % (Auto) 0.0 Baso % (Auto) 0.0 Neut # (Auto) 6.6 Lymph # (Auto) 0.5 L Sumner # (Auto) 0.3 L Eos # (Auto) 0.0 Baso # (Auto) 0.0 Immature Gran # (Auto) 0.0 Sodium 138.3 Potassium 4.03 Chloride 105.3 Carbon Dioxide 25.9 Anion Gap 11.13 BUN 30.9 H Creatinine 0.98 Estimated GFR (MDRD) 54.00 BUN/Creatinine Ratio 31.53 Glucose 149.7 H Calcium 9.08 Total Bilirubin 0.31 AST 32.6 ALT 22.3 Alkaline Phosphatase 66.9 Total Protein 5.76 L Albumin 3.49 L Globulin 2.27 Albumin/Globulin Ratio 1.53 Discharge Instructions Discharge Planning: Discharge Planning > 40 minutes If patient is discharged with left ventricular systolic dysfunction: no Discharged with a beta moe? [] If no, why not? [] Discharged with an cecilia/arb? [] If no, why not? [] Discharge Medications: Medications at Discharge (Home Meds & RX) fexofenadine 180 mg tablet (Allergy Relief (fexofenadine)) 180 mg PO QDAY 11/14/24 ergocalciferol (vitamin D2) 1,250 mcg (50,000 unit) capsule See Rx Instructions .Route .COMPLEX #12 caps 02/05/25 albuterol sulfate 0.63 mg/3 mL solution for nebulization 0.63 mg (3 mL) inhalation Q6H PRN shortness of breath or wheezing #90 mL 06/04/25 amlodipine 5 mg tablet 5 mg PO QDAY 90 days #90 tabs 06/04/25 fluticasone propionate 50 mcg/actuation nasal spray,suspension (Flonase Allergy Relief) 2 spray intranasal QDAY #16 grams 06/04/25 lisinopril 40 mg tablet 40 mg PO QDAY 90 days #90 tabs 06/04/25 albuterol sulfate 90 mcg/actuation aerosol inhaler 2 inh inhalation Q6H PRN shortness of breath or wheezing 90 days #8.5 grams 07/18/25 rivaroxaban 20 mg tablet (Xarelto) 20 mg PO QDAY #90 tabs 07/19/25 acetaminophen 650 mg tablet,extended release (Arthritis Pain Reliever) 650 mg PO Q8H PRN pain, moderate 09/25/25 arformoterol 15 mcg/2 mL solution for nebulization 2 ml inhalation BID 09/26/25 budesonide 0.5 mg/2 mL suspension for nebulization 0.5 mg inhalation BID 09/26/25 ensifentrine 3 mg/2.5 mL suspension for nebulization (Ohtuvayre) 3 mg inhalation BID 09/26/25 metoprolol succinate 25 mg tablet,extended release 24 hr 25 mg PO DAILY 09/26/25 revefenacin 175 mcg/3 mL solution for nebulization 175 mcg inhalation DAILY 09/26/25 azithromycin 250 mg tablet 500 mg (2 x 250 mg) PO BEDTIME #2 tabs 09/27/25 bupropion HCl 150 mg 24 hr tablet, extended release 450 mg (3 x 150 mg) PO DAILY #60 tabs 09/27/25 duloxetine 30 mg capsule,delayed release 90 mg (3 x 30 mg) PO DAILY #60 caps 09/27/25 furosemide 20 mg tablet (Lasix) 20 mg PO DAILY #30 tabs 09/27/25 Discharge Plan Discharge Discharge Orders: Discharge Patient (ONCE); Ordered 09/27/25 Ordered By: LAN BALDWIN Activity Restrictions/Additional Instructions: Discharge to TCU PT and OT to eval and treat Cardiac diet with 1800 fluid restriction Full Code Patient Disposition: DISCH W/I HOSP TO SWING BD Prescriptions: New azithromycin 250 mg Tablet 500 mg PO BEDTIME Qty: 2 0RF bupropion HCl 150 mg Tablet Extended Release 24 Hr 450 mg PO DAILY Qty: 60 0RF duloxetine 30 mg Capsule,Delayed Release(Dr/Ec) 90 mg PO DAILY Qty: 60 0RF furosemide [Lasix] 20 mg tablet 20 mg PO DAILY Qty: 30 0RF Continued ergocalciferol (vitamin D2) 1,250 mcg (50,000 unit) capsule See Rx Instructions .ROUTE .COMPLEX Qty: 12 0RF Dose Instruction: TAKE ONE CAPSULE EVERY WEEK Rx Instructions: TAKE ONE CAPSULE EVERY WEEK albuterol sulfate 90 mcg/actuation HFA aerosol inhaler 2 inh inhalation Q6H PRN (Reason: shortness of breath or wheezing) 90 Days Qty: 8.5 12RF Xarelto 20 mg tablet 20 mg PO QDAY Qty: 90 2RF Rx Instructions: must administer with evening meal acetaminophen [Arthritis Pain Reliever] 650 mg tablet extended release 650 mg PO Q8H PRN (Reason: pain, moderate) metoprolol succinate 25 mg tablet extended release 24 hr 25 mg PO DAILY Ohtuvayre 3 mg/2.5 mL suspension for nebulization 3 mg inhalation BID budesonide 0.5 mg/2 mL suspension for nebulization 0.5 mg inhalation BID arformoterol 15 mcg/2 mL solution for nebulization 2 ml inhalation BID revefenacin 175 mcg/3 mL solution for nebulization 175 mcg inhalation DAILY fexofenadine [Allergy Relief (fexofenadine)] 180 mg tablet 180 mg PO QDAY albuterol sulfate 0.63 mg/3 mL solution for nebulization 0.63 mg inhalation Q6H PRN (Reason: shortness of breath or wheezing) Qty: 90 2RF amlodipine 5 mg tablet 5 mg PO QDAY 90 Days Qty: 90 1RF fluticasone propionate [Flonase Allergy Relief] 50 mcg/actuation spray,suspension 2 spray intranasal QDAY Qty: 16 11RF Rx Instructions: administer into each nostril lisinopril 40 mg tablet 40 mg PO QDAY 90 Days Qty: 90 2RF Discontinued bumetanide 1 mg tablet 1 mg PO QDAY PRN (Reason: weight gain/ swelling) Qty: 90 4RF bupropion HCl 150 mg tablet sustained-release 12 hr 150 mg PO QAM 90 Days Qty: 90 2RF bupropion HCl 300 mg tablet extended release 24 hr 300 mg PO QAM 90 Days Qty: 90 2RF duloxetine 60 mg capsule,delayed release(DR/EC) 60 mg PO QDAY Qty: 90 2RF duloxetine 30 mg capsule,delayed release(DR/EC) 30 mg PO QDAY Qty: 90 2RF Did you review [place] TIN [employer] for ALL controlled substances?: No Discussed opioids are addictive and Narcan is available by prescription or from pharmacy.: No Condition: Stable
[2025-09-27] MEDS ORDERED: LASIX IVP SCH (21:00)
== END 2025-09-27 16:05 | disposition swing bed (61) ==
LOC: ED 18:22 → MEDSURG B 18:22
PROVIDERS: ADMIT Hospitalist; ATTEND Nurse Practitioner Family
DX: I10 Essential (primary) hypertension; I48.20 Chronic atrial fibrillation, unspecified; Z91.81 History of falling; F41.9 Anxiety disorder, unspecified; I25.10 Atherosclerotic heart disease of native coronary artery without angina pectoris; Z74.1 Need for assistance with personal care; R53.81 Other malaise; R26.2 Difficulty in walking, not elsewhere classified; Z20.822 Contact with and (suspected) exposure to COVID-19; J44.1 Chronic obstructive pulmonary disease with (acute) exacerbation; Z91.199 Patient's noncompliance with other medical treatment and regimen due to unspecified reason; I50.30 Unspecified diastolic (congestive) heart failure; Z51.81 Encounter for therapeutic drug level monitoring; F32.A Depression, unspecified; D64.89 Other specified anemias; Z79.899 Other long term (current) drug therapy; M62.81 Muscle weakness (generalized)